=== PATIENT | female | born 1945 | race Caucasian/White ===

== ENCOUNTER 2016-11-05 11:34 | Inpatient (IN) ==
--- NOTE | 2016-11-05 12:06 | Emergency Department Note ---
Disposition Clinical Impression: Periorbital cellulitis of left eye Disposition: Admitted As Inpatient Condition: Good Eye Problem HPI - General Chief complaint: ED Eye Problems Stated complaint: orbital cellulitis Time Seen by Provider: 11/05/16 11:40 Source: patient, family Limitations: no limitations Nursing Notes Reviewed: Yes Vital Signs Reviewed: Yes - History of Present Illness HPI Narrative: 71-year-old female with a history of hypertension and previous right sided orbital cellulitis as well as narrow angle glaucoma presents to the emergency department with a chief complaint of left eye pain and swelling. On Tuesday her left eye started feeling tender above her upper lid. She had previous spontaneous right sided orbital cellulitis and stated this felt very similar so went to see her eye doctor. Her eye doctor started her on steroid drops and she followed up Tuesday. On Tuesday the redness had worsened and apparently the pressure in her eye was elevated so he performed a decompression laser surgery and started her on Keflex. She took her Keflex Tuesday night and one dose today but the redness and swelling has worsened. She reports some pain in that left eye. She denies any nausea or vomiting. Denies any ear pain or jaw pain. Denies any difficulty swallowing. Denies any fevers or chills. - Related Data Home Medications Medication Instructions Recorded Confirmed Losartan [Cozaar] 25 mg PO DAILY 01/24/16 11/05/16 Potassium Chloride [Klor-Con] 20 meq PO DAILY 01/24/16 11/05/16 Rosuvastatin Calcium [Crestor] 5 mg PO DAILY 01/24/16 11/05/16 Triamterene/HCTZ 37.5/25mg 37.5 mg PO DAILY 01/24/16 11/05/16 [Dyazide] Aspirin Enteric Coated [Aspirin EC] 81 mg PO DAILY 11/05/16 11/05/16 Biotin Forte 1 each PO DAILY 11/05/16 11/05/16 cephALEXin [Keflex] 750 mg PO BID 11/05/16 11/05/16 Allergies Allergy/AdvReac Type Severity Reaction Status Date / Time No Known Allergies Allergy Verified 01/25/16 10:41 All systems ED: reviewed and negative except as stated. Constitutional: Denies: fever, chills Eyes: Reports: vision change (Blurred vision in that eye) Respiratory: Denies: dyspnea Gastrointestinal: Denies: nausea, vomiting Musculoskeletal: Denies: neck pain Past Medical History - Past Medical History Attestation: Yes The following information was validated with the patient. Medical history: Reports: hyperlipidemia, hypertension Surgical history: Reports: no surgical history Psychiatric history: Reports: no psych history - Social History Smoking Status: Never smoker Alcohol use: Reports: none Drug use: Reports: none Physical Exam Gen.: Resting comfortably in bed in no distress Cardiovascular: Regular rate and rhythm Head: Atraumatic without signs of injury Face: There is circumferential erythema and swelling around the left eye involving the lids and the soft tissue. She cannot open her eye independently but we can open it manually. The eye conjunctiva itself is erythematous and watery. Her pupil is reactive both direct and consensually. EOMI. However, when she looks laterally with the left eye it does cause some discomfort. - General Limitations: no limitations General appearance: alert, in no apparent distress Course Course Narrative: CT scan shows findings consistent with left periorbital cellulitis without significant post-septal extension. Patient was already on antibiotics and she had worsening symptoms which I think qualifies as failed outpatient treatment. She was given IV antibiotics in the emergency Department but I feel that admission for observation for IV antibiotics and further monitoring is imperative. Vital Signs Temperature 98.6 F 11/05/16 11:35 Pulse Rate 74 11/05/16 11:35 Respiratory Rate 18 11/05/16 11:35 Blood Pressure 173/83 11/05/16 11:35 O2 Sat by Pulse Oximetry 98 11/05/16 11:35 Temperature 98.6 F 11/05/16 11:35 Pulse Rate 59 11/05/16 14:09 Respiratory Rate 16 11/05/16 14:55 Blood Pressure 148/72 11/05/16 14:55 O2 Sat by Pulse Oximetry 95 11/05/16 13:22 Oxygen Delivery Oxygen Delivery Room Air Eye - Lab Data Result diagrams: 11/05/16 12:09 11/05/16 12:09 Lab Results 11/05/16 11/05/16 Range/Units 12:09 12:09 WBC 8.0 (4.3-11.1) K/mcL RBC 4.54 (3.82-4.97) M/mcL Hgb 13.1 (11.5-15.4) g/dL Hct 39.2 (35.3-44.9) % MCV 86.3 (83.0-100.0) fL MCH 28.9 (28.0-33.3) pg MCHC 33.4 (31.6-35.5) g/dL RDW 13.0 (11.5-14.5) % Plt Count 205 (140-400) K/mcL MPV 10.5 (9.4-12.4) fL Immature Gran % 0.3 (0-4) % Seg Neutrophils % 62.9 % Lymphocytes % 22.8 % Monocytes % 12.8 % Eosinophils % 0.8 % Basophils % 0.4 % Neutrophils # 5.1 (1.6-8.9) K/mcL Lymphocytes # 1.8 (0.6-4.6) K/mcL Monocytes # 1.0 (0.0-1.3) K/mcL Eosinophils # 0.1 (0.0-0.6) K/mcL Basophils # 0.0 (0.0-0.2) K/mcL Sodium 141 (136-145) mEq/L Potassium 3.3 L (3.5-4.5) mEq/L Chloride 105 (98-109) mEq/L Carbon Dioxide 26 (19-29) mEq/L BUN 21 H (7-20) mg/dL Creatinine 0.87 (0.57-1.11) mg/dL Est GFR ( Amer) > 60 (> 60) Est GFR (Non-Af Amer) > 60 (> 60) BUN/Creatinine Ratio 24 (6-26) Glucose 86 (70-99) mg/dL Calculated Osmolality 294 (280-300) Calcium 9.9 (8.6-10.8) mg/dL Attestation Statement - Attestation Attestation: I examined this patient and my medical decision-making was reviewed with the DYE MIXER/PA/Advanced Practice Nurse/Resident Physician. I agree with the documented findings, disposition and treatment plan as described except to the extent set forth below. 71-year-old female presents ED because of pain around her left eye. She began several days ago with erythema around the left eye was started on a course of Keflex. She was seen by optometry who noted her intraocular pressure was elevated to 30. He performed a laser procedure to reduce the pressure. She was seen in follow-up today and the pressure was improved but she had worsening of the erythema despite 4 days of Keflex. She was sent to the ED for IV antibiotics. Denies any headache. No fevers or chills. Vision in the left eye is still a little bit blurry. No known trauma. No other complaints. Pleasant female in no apparent distress. Pupils equal react to light. Anterior chambers are clear. No direct or consensual photophobia. She does have pain with extraocular movements. No proptosis appreciated. Dense erythema surrounding the eye which is tender to palpation. CT of the orbit was negative for orbital abscess. Mild inflammation stranding was noted. She will be admitted for IV antibiotics and further ophthalmology evaluation
[2016-11-05 12:16] LABS: Basophils % 0.4 %; Eosinophils # 0.1 K/mcL (0.0-0.6); Eosinophils % 0.8 %; Hematocrit 39.2 % (35.3-44.9); Hemoglobin 13.1 g/dL (11.5-15.4); Immature Granulocytes % 0.3 % (0-4); Lymphocytes # 1.8 K/mcL (0.6-4.6); Lymphocytes % 22.8 %; Mean Corpuscular HGB Conc 33.4 g/dL (31.6-35.5); Mean Corpuscular Hemoglobin 28.9 pg (28.0-33.3); Mean Corpuscular Volume 86.3 fL (83.0-100.0); Mean Platelet Volume 10.5 fL (9.4-12.4); Monocytes % 12.8 %; Neutrophils # 5.1 K/mcL (1.6-8.9); Platelet Count 205 K/mcL (140-400); Red Blood Count 4.54 M/mcL (3.82-4.97); Segmented Neutrophils % 62.9 %
[2016-11-05 12:29] LABS: BUN/Creatinine Ratio 24 (6-26); Blood Urea Nitrogen 21 mg/dL (7-20); Calcium 9.9 mg/dL (8.6-10.8); Carbon Dioxide 26 mEq/L (19-29); Chloride 105 mEq/L (98-109); Glucose 86 mg/dL (70-99); Osmolality,Calculated 294 (280-300); Potassium 3.3 mEq/L (3.5-4.5); Sodium 141 mEq/L (136-145); eGFR For African Americans > 60 (> 60); eGFR For Non-African Americans > 60 (> 60)
--- NOTE | 2016-11-05 15:52 | Internal Med History&Physical ---
Date of Encounter: 11/05/16 Time of Encounter: 15:30 Assessment and Plan (1) Periorbital cellulitis of left eye Current visit: Yes Status: Acute Acute left periorbital cellulitis. Failed outpatient treatment with Keflex. Will treat with intravenous antibiotics. (2) Essential hypertension Current visit: Yes Status: Chronic Blood pressure is currently elevated likely related to pain. We will monitor blood pressure and resume home medications. (3) Hypokalemia Current visit: No Status: Chronic Potassium 3.3. We will replace orally. Internal Medicine - H&P: HPI Chief complaint: Left eye redness and swelling Admitted From: Emergency Dept Plans for Post Hospital Care: Home History of present illness: Ms. Garcia is a 71 year old female patient with history of hyperlipidemia, hypertension, previous preseptal cellulitis of the right eye who presented to the ER with complaints of redness and swelling involving the left eye. Her symptoms began on Tuesday. 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 They initially prescribed steroid eye drops and asked her to return the next day. By then she developed some more swelling and redness of the eye and was evaluated and told that there was increased pressure in the eye and so she underwent laser surgery then. She was also prescribed Keflex at that time which she began to take next day. She was evaluated in the clinic again today and was noted to have much worse redness and swelling involving the left eye and so was asked to come to the ER for further evaluation. She denies any vision problems. No fever chills or night sweats. She had a similar presentation last year involving the right eye when she was diagnosed with preseptal cellulitis and was treated with intravenous antibiotics. Past Med Surg Social Fam HX - Past Medical History Attestation: Yes The following information was validated with the patient. Source: patient Medical history: hyperlipidemia, hypertension Psychiatric history: no psych history - Past Surgical History Surgical History: no surgical history - Social History Smoking Status: Never smoker Alcohol use: none Drug use: none - Family History Father Family Member Ethnicity: Non- Internal Medicine - H&P: Meds Losartan [Cozaar] 25 mg PO DAILY 01/24/16 [History] Potassium Chloride [Klor-Con] 20 meq PO DAILY 01/24/16 [History] Rosuvastatin Calcium [Crestor] 5 mg PO DAILY 01/24/16 [History] Triamterene/HCTZ 37.5/25mg [Dyazide] 37.5 mg PO DAILY 01/24/16 [History] Aspirin Enteric Coated [Aspirin EC] 81 mg PO DAILY 11/05/16 [History] Biotin Forte 1 each PO DAILY 11/05/16 [History] cephALEXin [Keflex] 750 mg PO BID 11/05/16 [History] Allergies No Known Allergies Allergy (Verified 01/25/16 10:41) All Systems PM: A 10-system review of systems was performed and is negative for pertinent findings except as documented above in the HPI. - Constitutional Constitutional: no chills, no fever(s), no night sweats - EENT Eyes: irritation, itchy eyes, no change in vision, no discharge, no pain, no photophobia Ears: no ear discharge, no ear pain, no tinnitus Nose, mouth and throat: no dysphagia, no nasal discharge, no neck pain, no sore throat - Cardiovascular Cardiovascular ROS IM: no chest pain, no diaphoresis, no dyspnea, no lightheadedness, no palpitations, no syncope - Respiratory Respiratory: no cough, no dyspnea, no wheezing, no excessive phlegm production - Gastrointestinal Gastrointestinal: no abdominal pain, no diarrhea, no hematemesis, no hematochezia, no melena, no nausea, no vomiting - Genitourinary Genitourinary: no change in urinary stream, no dysuria, no flank pain, no hematuria - Musculoskeletal Musculoskeletal ROS IM: no numbness, no tingling - Integumentary Integumentary IM: no rash, no unusual bruising - Neurological Neurological ROS: no confusion, no convulsions, no focal weakness, no numbness, no tingling, no tremor(s) - Hematologic/Lymphatic Hematologic/Lymphatic: no easy bruising - Constitutional Vitals: Temp Pulse Resp BP Pulse Ox 98.6 F 59 16 148/72 95 11/05/16 11:35 11/05/16 14:09 11/05/16 14:55 11/05/16 14:55 11/05/16 13:22 General appearance: Present: cooperative, mild distress, A&O X 3, pleasant, answers questions appropriately - Eye Eye exam: Present: conjunctival injection (Left eye), periorbital swelling ( Left eye), periorbital tenderness (Left eye), PERRL, conjuntiva pink, sclera anicteric - Neck Neck exam general surgery: Present: supple, trachea midline. Absent: lymphadenopathy - Respiratory Respiratory exam: Present: CTAB. Absent: accessory muscle use, rales, rhonchi, wheezes - Cardiovascular Cardiovascular exam: Present: RRR, +S1, +S2. Absent: diastolic murmur, gallop, rubs, systolic murmur - GI/Abdominal GI/Abdominal exam: Present: normal bowel sounds, soft, no peritoneal signs. Absent: distended, tenderness - Extremities Exam Extremities exam: Present: warm, radial pulses palpable and symetrical. Absent : calf tenderness, cyanotic, pedal edema - Neurological Exam Neurological exam: Present: alert, CN II-XII intact, oriented X3, no focal deficits. Absent: pronater drift, facial droop, speech deficit - Skin Skin exam: Present: dry, intact Internal Med - H&P Results - Labs CBC & Chem 7: 11/05/16 12:09 11/05/16 12:09 - Impressions Impressions Orbit CT 11/05/16 12:02 IMPRESSION: Findings are consistent with left periorbital cellulitis, without significant postseptal/interconal extension. D/ / 11/05/2016 13:33:25 Moses Cardoza MD / Ольга Chandra Interpreting Provider: Moses Cardoza MD - Attending Attestation This document has been at least partially created by [employer] voice recognition technology by Dr. Gaston. Errors in grammar, wording or other phrases may exist. If errors are found after the documentation is signed, they will be addressed individually in the addendum section of this document when appropriate.
[2016-11-05] MEDS ORDERED: Naloxone 0.4 MG/ML INJ IVP PRN (15:56)
[2016-11-05] MEDS: Ampicillin/Sulbactam 3,000 MG in 0.9 % Sodium Chloride Mini Bag 100 ML IVPB SCH (16:25)
[2016-11-05] MEDS: Acetaminophen 325 MG TABLET PO PRN (16:25)
[2016-11-05] MEDS: *HR* Heparin 5,000 UNIT/ML VIAL SQ SCH ×2 (16:26→16:31)
[2016-11-05] MEDS: 0.9 % Sodium Chloride w KCl 20 MEQ/1,000 ML MLS IVC SCH (16:26)
[2016-11-05] MEDS ORDERED: *HR* OxyCODONE Immed Rel 5 MG TABLET PO PRN (19:41)
[2016-11-05] MEDS: Ibuprofen 400 MG TABLET PO PRN (21:18)
[2016-11-06] MEDS: Ampicillin/Sulbactam 3,000 MG in 0.9 % Sodium Chloride Mini Bag 100 ML IVPB SCH ×5 (00:41→23:54)
[2016-11-06 05:25] LABS: Basophils % 0.5 %; Eosinophils # 0.1 K/mcL (0.0-0.6); Eosinophils % 2.2 %; Hemoglobin 11.7 g/dL (11.5-15.4); Immature Granulocytes % 0.3 % (0-4); Mean Corpuscular HGB Conc 31.6 g/dL (31.6-35.5); Mean Corpuscular Hemoglobin 27.7 pg (28.0-33.3); Mean Corpuscular Volume 87.7 fL (83.0-100.0); Mean Platelet Volume 11.1 fL (9.4-12.4); Monocytes # 0.9 K/mcL (0.0-1.3); Monocytes % 13.1 %; Neutrophils # 3.5 K/mcL (1.6-8.9); Platelet Count 200 K/mcL (140-400); Red Blood Count 4.22 M/mcL (3.82-4.97); Segmented Neutrophils % 53.9 %
[2016-11-06] MEDS: *HR* Heparin 5,000 UNIT/ML VIAL SQ SCH ×2 (06:22→17:04)
[2016-11-06] MEDS: 0.9 % Sodium Chloride w KCl 20 MEQ/1,000 ML MLS IVC SCH (06:23)
[2016-11-06] MEDS: Aspirin Enteric Coated 81 MG Tablet PO SCH (08:27)
[2016-11-06] MEDS: Acetaminophen 325 MG TABLET PO PRN (08:36)
[2016-11-06] MEDS: Ibuprofen 400 MG TABLET PO PRN ×2 (10:05→21:42)
--- NOTE | 2016-11-06 15:55 | Internal Med Progress Note ---
Date of Encounter: 11/06/16 Time of Encounter: 11:45 - Assessment and plan (1) Periorbital cellulitis Current Visit: No Status: Acute Assessment and plan: Acute left periorbital cellulitis. History of same to right side one year ago. Patient failed outpatient treatment with Keflex. She was seen twice at [facility] office. Was sent here for treatment and evaluation. She received Rocephin 2 g IV 1 in the emergency department. She is being treated with Unasyn 3 g every 6 hours IV here. Patient showed me pictures from onset and it has greatly improved. Periorbital area still remains red and warm and tender, however patient can actually open eye today and can see out of her eye. Will keep patient another day discharge tomorrow if improving. Continue Unasyn 3 g every 6 hours IV Qualifiers: Laterality: left Qualified Code(s): L03.213 - Periorbital cellulitis (2) HTN (hypertension) Current Visit: No Status: Chronic Assessment and plan: Continue home medications. Qualifiers: Hypertension type: essential hypertension Qualified Code(s): I10 - Essential (primary) hypertension (3) Hypokalemia Current Visit: No Status: Chronic Assessment and plan: Still remains hypokalemic. She is receiving 20 mEq potassium in the liter. Potassium still remains 3.3 Will redraw in the morning along with magnesium. - Time Spent With Patient less than 15 minutes - Subjective Interval history: Patient has pictures on her cell phone from 2 days ago. Left eye has greatly improved. Still remain slightly reddened, swollen, and painful. Today patient can open eyes for the first time in several days and can see out of left eye. She says this is a great improvement. She denies any other problems or concerns. We will continue to monitor overnight and discharged tomorrow if still improving. - Constitutional Vitals: Temp Pulse Resp BP Pulse Ox 98.1 F 71 14 133/75 94 11/06/16 10:37 11/06/16 10:37 11/06/16 10:37 11/06/16 10:37 11/06/16 10:37 General appearance: Present: cooperative, mild distress, A&O X 3, pleasant, answers questions appropriately - Head Head exam: Present: normal inspection - Eye Eye exam: Present: periorbital swelling, periorbital tenderness, conjuntiva pink - ENT ENT exam: Present: mucous membranes moist, normal exam, normal external ear exam - Neck Neck exam general surgery: Present: normal inspection. Absent: lymphadenopathy , tenderness - Respiratory Respiratory exam: Present: CTAB. Absent: rales, respiratory distress, rhonchi, stridor, wheezes - Cardiovascular Cardiovascular exam: Present: RRR, +S1, +S2. Absent: diastolic murmur, systolic murmur - GI/Abdominal GI/Abdominal exam: Present: normal bowel sounds, soft. Absent: hepatomegaly, tenderness - Neurological Exam Neurological exam: Present: alert, normal gait, oriented X3, no focal deficits, strengths equal and symetr throughout. Absent: pronater drift, facial droop, speech deficit Internal Medicine: Result - Labs CBC & Chem 7: 11/06/16 05:06 11/06/16 09:48 Labs: Short CBC 11/06/16 Range/Units 05:06 WBC 6.5 (4.3-11.1) K/mcL Hgb 11.7 (11.5-15.4) g/dL Hct 37.0 (35.3-44.9) % Plt Count 200 (140-400) K/mcL Neutrophils # 3.5 (1.6-8.9) K/mcL BMP 11/06/16 09:48 Potassium 3.3 L Consult Discharge Plan - Plan Referrals: Sapna Ramos CNP [Primary Care Provider] -
[2016-11-07] MEDS: 0.9 % Sodium Chloride w KCl 20 MEQ/1,000 ML MLS IVC SCH (01:56)
[2016-11-07 04:51] LABS: Basophils % 0.6 %; Eosinophils # 0.4 K/mcL (0.0-0.6); Eosinophils % 5.7 %; Hematocrit 36.6 % (35.3-44.9); Hemoglobin 11.6 g/dL (11.5-15.4); Immature Granulocytes % 0.3 % (0-4); Lymphocytes # 1.9 K/mcL (0.6-4.6); Lymphocytes % 31.4 %; Mean Corpuscular HGB Conc 31.7 g/dL (31.6-35.5); Mean Corpuscular Hemoglobin 28.1 pg (28.0-33.3); Mean Corpuscular Volume 88.6 fL (83.0-100.0); Mean Platelet Volume 11.6 fL (9.4-12.4); Monocytes # 0.7 K/mcL (0.0-1.3); Neutrophils # 3.1 K/mcL (1.6-8.9); Platelet Count 201 K/mcL (140-400); Red Blood Count 4.13 M/mcL (3.82-4.97)
[2016-11-07 04:58] LABS: Magnesium 1.4 mg/dL (1.6-2.6); Potassium 4.1 mEq/L (3.5-4.5)
[2016-11-07] MEDS: Ampicillin/Sulbactam 3,000 MG in 0.9 % Sodium Chloride Mini Bag 100 ML IVPB SCH ×2 (06:41→11:57)
[2016-11-07] MEDS: *HR* Heparin 5,000 UNIT/ML VIAL SQ SCH (06:41)
[2016-11-07] MEDS: Ibuprofen 400 MG TABLET PO PRN (06:47)
[2016-11-07] MEDS: Aspirin Enteric Coated 81 MG Tablet PO SCH (08:21)
[2016-11-07] MEDS ORDERED: Magnesium Oxide 400 MG TABLET PO SCH (09:00)
[2016-11-07 11:08] VITALS: BP 130/82
--- NOTE | 2016-11-07 12:27 | Discharge Summary ---
Date of Encounter: 11/07/16 Time of Encounter: 09:30 - Discharge Diagnosis (1) Periorbital cellulitis Priority: Primary Status: Acute Comments: Pt is greatly improved today. L eye is actually opened and pt states that she can see out of it. L eye is bloodshot. Pt denies pain, drainage, or vision changes. States that she will follow up with Opthomology outpatient. Pt will be sent home on . Qualifiers: Laterality: left Qualified Code(s): L03.213 - Periorbital cellulitis (2) HTN (hypertension) Priority: Secondary Status: Chronic Comments: Chronic. Well-controlled. Continue home medications. Qualifiers: Hypertension type: essential hypertension Qualified Code(s): I10 - Essential (primary) hypertension (3) Hypokalemia Priority: Secondary Status: Resolved Comments: Resolved. K+ 4.1 today.. - Discharge Medications Prescriptions: Amoxicillin/Clavulanate [Augmentin] 875 mg PO BIDWM #20 tablet Home Medications: Losartan [Cozaar] 25 mg PO DAILY 01/24/16 [History] Potassium Chloride [Klor-Con] 20 meq PO DAILY 01/24/16 [History] Rosuvastatin Calcium [Crestor] 5 mg PO DAILY 01/24/16 [History] Triamterene/HCTZ 37.5/25mg [Dyazide] 37.5 mg PO DAILY 01/24/16 [History] Aspirin Enteric Coated [Aspirin EC] 81 mg PO DAILY 11/05/16 [History] Biotin Forte 1 each PO DAILY 11/05/16 [History] Amoxicillin/Clavulanate [Augmentin] 875 mg PO BIDWM #20 tablet 11/07/16 [Rx] Allergies/Adverse Reactions: Allergies No Known Allergies Allergy (Verified 01/25/16 10:41) Date of admission: 11/06/16 18:42 Primary care physician: Sapna Ramos CNP Discharging clinician: Kyra Villegas Anticipated date of discharge: 11/07/16 - Patient Status Disposition: Home, Self-Care Condition: Good Functional capacity at discharge: independent ambulation Overall status at discharge: patient is progressing back to baseline - Discharge Instructions Follow Up With: Sapna Ramos CNP [Primary Care Provider] - Additional Instructions: Please take your antibiotics as written and until they are gone. Resume your other home medications. Please follow up with your PCP and Opthomologist ASHLEY. Return to the ED for any new problems or concerns or if your condition changes. - Diet and Activity Activity: increase activity as tolerated Diet: advance to your usual diet Hospital course: Ms. Garcia is a 71 year old female with prior history of periorbital cellulitis to the right eye approximately one year ago. 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 She was started on Keflex and failed outpatient. She was admitted for IV therapy. She has been being treated with Unasyn. Her vision has returned and her eye is open to where she can see now. Yesterday her eye was still closed and she had to open it with her fingers. Sclera is red, pt denies vision changes, discharge. She is being discharged on Augmentin 875mg po bid x 10 days. I have discussed the importance of following up with her PCP and opthomology and she states that she will follow up this week. Pt is appropriate and stable for discharge. - Time Spent with Patient Total time spent providing and/or coordinating discharge services: - Constitutional Vitals: Temp Pulse Resp BP Pulse Ox 97.6 F 67 16 130/82 98 11/07/16 11:07 11/07/16 11:07 11/07/16 11:07 11/07/16 11:07 11/07/16 11:07 General appearance: Present: cooperative, mild distress, A&O X 3, pleasant, answers questions appropriately - Head Head exam: Present: normal inspection - Eye Eye exam: Present: conjunctival injection, normal appearance, periorbital swelling, conjuntiva pink - ENT ENT exam: Present: mucous membranes moist, normal exam, normal external ear exam - Neck Neck exam general surgery: Present: normal inspection. Absent: lymphadenopathy , tenderness - Respiratory Respiratory exam: Present: decreased breath sounds. Absent: rales, respiratory distress, rhonchi, stridor, wheezes - Cardiovascular Cardiovascular exam: Present: RRR, +S1, +S2. Absent: diastolic murmur, systolic murmur - GI/Abdominal GI/Abdominal exam: Present: normal bowel sounds, soft. Absent: distended, hepatomegaly, tenderness - Extremities Exam Extremities exam: Present: normal inspection, warm, radial pulses palpable and symetrical. Absent: pedal edema, tenderness - Neurological Exam Neurological exam: Present: alert, oriented X3, no focal deficits, strengths equal and symetr throughout. Absent: facial droop, speech deficit
== END 2016-11-07 13:39 | disposition home or self-care (01) | DRG 603 ==
LOC: EMEROO 11:34 → 3NENU 11:34 → SUATTDRO 14:26 → 3NENU 15:15
PROVIDERS: ADMIT Internal Medicine; ATTEND Internal Medicine

== ENCOUNTER 2018-02-03 18:33 | Inpatient (IN) ==
[2018-02-03] MEDS ORDERED: MORPHINE SUL Oral CONC 10 MG/0.5 ML ORAL.SYG SL PRN (20:43)
[2018-02-04] MEDS: 0.9 % Sodium Chloride 1,000 ML IVC SCH ×2 (00:09→19:35)
[2018-02-04] MEDS: Piperacillin/Tazobactam 3.375 GM in 0.9 % Sodium Chloride Mini Bag 100 ML IVPB SCH ×4 (00:09→23:57)
[2018-02-04] MEDS: *HR* Heparin 5,000 UNIT/ML VIAL SQ SCH ×2 (05:39→17:58)
[2018-02-04 06:55] LABS: Basophils # 0.1 K/mcL (0.0-0.2); Eosinophils # 0.2 K/mcL (0.0-0.6); Eosinophils % 3.2 %; Hematocrit 34.1 % (35.3-44.9); Hemoglobin 11.4 g/dL (11.5-15.4); Immature Granulocytes % 0.3 % (0-4); Lymphocytes # 1.8 K/mcL (0.6-4.6); Lymphocytes % 29.1 %; Mean Corpuscular HGB Conc 33.4 g/dL (31.6-35.5); Mean Corpuscular Volume 86.8 fL (83.0-100.0); Mean Platelet Volume 10.2 fL (9.4-12.4); Monocytes # 0.9 K/mcL (0.0-1.3); Monocytes % 14.9 %; Neutrophils # 3.2 K/mcL (1.6-8.9); Platelet Count 224 K/mcL (140-400); Red Blood Count 3.93 M/mcL (3.82-4.97); Red Cell Distribution Width 13.7 % (11.5-14.5); Segmented Neutrophils % 51.5 %
[2018-02-04 07:22] LABS: BUN/Creatinine Ratio 15 (6-26); Blood Urea Nitrogen 11 mg/dL (8-23); Calcium 9.3 mg/dL (8.6-10.3); Carbon Dioxide 28 mEq/L (23-29); Chloride 103 mEq/L (98-107); Glucose 95 mg/dL (70-105); Osmolality,Calculated 287 (280-300); Potassium 3.1 mEq/L (3.5-5.1); Sodium 139 mEq/L (136-145); eGFR For Non-African Americans > 60 (> 60)
--- NOTE | 2018-02-04 12:24 | General Surg History&Physical ---
<Liz Milian - Last Filed: 02/04/18 14:24> Date of Encounter: 02/04/18 Assessment and Plan (1) Diverticulitis of large intestine with abscess Current Visit: Yes Status: Acute The assessment and plan as outlined above was discussed with the patient and/or family members who expressed understanding and agreement. All questions were answered. Dicussed with patient that given her worsening CT findings I think it is prudent to admit her for a few days of IV antibiotics zosyn started ok fulls cbc wnl tender LLQ, no rebound or guarding ordered stool gi panel serial abdomnial exams Qualifiers: Diverticulitis bleeding: without bleeding Qualified Code(s): K57.20 - Diverticulitis of large intestine with perforation and abscess without bleeding (2) Essential hypertension Current Visit: No Status: Chronic The assessment and plan as outlined above was discussed with the patient and/or family members who expressed understanding and agreement. All questions were answered. continue home medication History of Present Illness Chief complaint: chronic abdominal pain HPI: Ms. Garcia is a 72 year old female who has been seeing Dr Campbell as outpatient for chronic LLQ abdominal pain and diarrhea/loose stools. Patient had CT scan which showed sigmoid colon inflammation consistent with diverticulitis and she was treated with po antibiotics , cipro and flagyl for 10 days. She recently underwent colonoscopy which showed thick walled sigmoid and biopsies were consistent with hyperplastic polyp. She underwent repeat CT scan this past which shows continued sigmoid colon inflammation, worse since previous CT, and an intramural abscess. She was restarted on po antibiotics but only took 1 days worth. [facility] called with results and patient was instructed to present to hospital for admission and IV antibiotics. She is still having intermittent LLQ pain which is crampy, sometimes sharp. It can be worse before a bm and sometimes is relieved after a bowel movement. She often feels like she isnt fully evacuated after having a bm. Denies melena or hematochezia. She often has diarrhea and soft stools, then will pass small firm stool. She has lost 33 lbs since may. Past Med Surg Social Fam HX - Past Medical History Source: patient Medical history: hyperlipidemia, hypertension Psychiatric history: depression - Past Surgical History Surgical History: other Medications and Allergies Rosuvastatin Calcium [Crestor] 5 mg PO DAILY 01/24/16 [History] Triamterene/HCTZ 37.5/25mg [Dyazide] 37.5 mg PO DAILY 01/24/16 [History] Biotin Forte 1 each PO DAILY 11/05/16 [History] Ciprofloxacin [Cipro] 500 mg PO BID 02/04/18 [History] Potassium Chloride [Klor-Con 10] 30 meq PO DAILY 02/04/18 [History] Sulfasalazine [Azulfidine] 500 mg PO QID 02/04/18 [History] metroNIDAZOLE [Metronidazole] 500 mg PO BID 02/04/18 [History] 3 Allergy/AdvReac Type Severity Reaction Status Date / Time No Known Allergies Allergy Verified 01/25/16 10:41 Review of Systems All systems PM: reviewed and no additional remarkable complaints except as stated All systems PM: The remainder of the systems were reviewed and are negative General Surgery Exam Initial Vital Signs Temp Pulse Resp BP Pulse Ox 98.6 F 90 15 129/78 97 02/03/18 20:10 02/03/18 20:10 02/03/18 20:10 02/03/18 20:10 02/03/18 20:10 - General physical appearance well developed, well nourished, no distress - Eyes PERRL, normal ocular movement - ENT normal mucosa, normocephalic - Neck trachea midline - Respiratory normal expansion, clear to auscultation - Cardiovascular Cardiovascular exam: Present: RRR, no murmurs/rubs/gallops - Abdomen Abdomen general surgery: Present: bowel sounds present, soft, tender. Absent: distended, guarding, rebound Abdominal Tenderness: Present: LLQ - Integumentary Integumentary general surgery: Present: warm and dry, no abnormal pigmentation - Neurologic Present: CN 2-12 grossly intact - Psychiatric Psychiatric general surgery: Present: A&Ox3 Results - Labs 02/04/18 06:20 02/04/18 06:20 Abnormal lab results Hgb 11.4 g/dL (11.5-15.4) L 02/04/18 06:20 Hct 34.1 % (35.3-44.9) L 02/04/18 06:20 Potassium 3.1 mEq/L (3.5-5.1) L 02/04/18 06:20 Diabetes panel 02/04/18 Range/Units 06:20 Sodium 139 (136-145) mEq/L Potassium 3.1 L (3.5-5.1) mEq/L Chloride 103 (98-107) mEq/L Carbon Dioxide 28 (23-29) mEq/L BUN 11 (8-23) mg/dL Creatinine 0.72 (0.60-1.20) mg/dL Glucose 95 (70-105) mg/dL Calcium 9.3 (8.6-10.3) mg/dL Calcium panel 02/04/18 Range/Units 06:20 Calcium 9.3 (8.6-10.3) mg/dL Pituitary panel 02/04/18 Range/Units 06:20 Sodium 139 (136-145) mEq/L Potassium 3.1 L (3.5-5.1) mEq/L Chloride 103 (98-107) mEq/L Carbon Dioxide 28 (23-29) mEq/L BUN 11 (8-23) mg/dL Creatinine 0.72 (0.60-1.20) mg/dL Glucose 95 (70-105) mg/dL Calcium 9.3 (8.6-10.3) mg/dL Adrenal panel 02/04/18 Range/Units 06:20 Sodium 139 (136-145) mEq/L Potassium 3.1 L (3.5-5.1) mEq/L Chloride 103 (98-107) mEq/L Carbon Dioxide 28 (23-29) mEq/L BUN 11 (8-23) mg/dL Creatinine 0.72 (0.60-1.20) mg/dL Glucose 95 (70-105) mg/dL Calcium 9.3 (8.6-10.3) mg/dL All other labs normal. - Imaging CT scan - abdomen: report reviewed, image reviewed CT scan - pelvis: report reviewed, image reviewed - Attending Attestation I examined this patient and my medical decision-making was reviewed with the Resident Physician. I agree with the documented findings, disposition and treatment plan as described except to the extent set forth below. <Radha Colby - Last Filed: 02/04/18 14:35> Date of Encounter: 02/04/18 Time of Encounter: 12:19 Assessment and Plan (1) Hypercholesterolemia Current Visit: Yes Status: Acute Continue Lipitor The assessment and plan as outlined above was discussed with the patient and/or family members who expressed understanding and agreement. All questions were answered. (2) Intestinal abscess Current Visit: Yes Status: Acute Full liquid diet Serial abdominal exams Continue Zosyn Continue supportive care and pain management Prilosec 20mg Daily. The assessment and plan as outlined above was discussed with the patient and/or family members who expressed understanding and agreement. All questions were answered. (3) HTN (hypertension) Current Visit: No Status: Chronic Continue Dyazide The assessment and plan as outlined above was discussed with the patient and/or family members who expressed understanding and agreement. All questions were answered. Qualifiers: Hypertension type: essential hypertension Qualified Code(s): I10 - Essential (primary) hypertension (4) DVT prophylaxis Current Visit: Yes Status: Acute Heparin 5000 unit SQ Q12 EPCD History of Present Illness HPI: Ms. Garcia is a 72 year old female presents with a month long history of diarrhea, small stools, and lower abdominal cramping/dull pain. She had been seen on (_) and had a CT scan that showed some sigmoid colon wall thickening, was put on a 10 day dose of oral antibiotics. WAs seen again on 02/02/[address] Campbell who ordered a second CT scan and he began another round of oral antibiotics at that time. The patient still has been having the dull/achey cramping sensation which is occasionally relieved after going to the restroom. She has a history of HTN and high cholesterol. Abdominal surgeries include a tubal ligation. Past Med Surg Social Fam HX - Past Medical History Medical history: hyperlipidemia, hypertension Psychiatric history: depression - Past Surgical History Surgical History: no surgical history Additional surgical history: Colonscopy December 2017 and heart cath about 2007. - Social History Smoking Status: Never smoker Smokeless Tobacco Status: No Alcohol use: none Drug use: none - Family History Mother Hx Family Neurologic Disorders: Yes (Cerebral hemmorhage) Father Family Member Ethnicity: Non- Hx Family Neurologic Disorders: Yes (Stroke) Review of Systems All systems PM: The remainder of the systems were reviewed and are negative - Constitutional weight loss (33 lbs since June ), no anorexia, no fatigue - Cardiovascular no chest pain, no radiating jaw, neck or arm pain, no rapid heart rate - Respiratory no cough, no dyspnea, no chest congestion - Gastrointestinal change in bowel habits (diarrhea, small stools), cramping, diarrhea General Surgery Exam Initial Vital Signs Temp Pulse Resp BP Pulse Ox 98.6 F 90 15 129/78 97 02/03/18 20:10 02/03/18 20:10 02/03/18 20:10 02/03/18 20:10 02/03/18 20:10 - General physical appearance well developed, well nourished, no distress - Respiratory normal expansion, normal respiratory effort, clear to auscultation - Cardiovascular Cardiovascular exam: Present: RRR, no murmurs/rubs/gallops - Abdomen Abdomen general surgery: Present: bowel sounds present, soft, tender (to palpation ) Abdominal Tenderness: Present: RLQ, LLQ - Integumentary Integumentary general surgery: Present: warm and dry, no abnormal pigmentation - Musculoskeletal Present: normal posture - Psychiatric Psychiatric general surgery: Present: A&Ox3 Results - Labs 02/04/18 06:20 02/04/18 06:20 Abnormal lab results Hgb 11.4 g/dL (11.5-15.4) L 02/04/18 06:20 Hct 34.1 % (35.3-44.9) L 02/04/18 06:20 Potassium 3.1 mEq/L (3.5-5.1) L 02/04/18 06:20 Diabetes panel 02/04/18 Range/Units 06:20 Sodium 139 (136-145) mEq/L Potassium 3.1 L (3.5-5.1) mEq/L Chloride 103 (98-107) mEq/L Carbon Dioxide 28 (23-29) mEq/L BUN 11 (8-23) mg/dL Creatinine 0.72 (0.60-1.20) mg/dL Glucose 95 (70-105) mg/dL Calcium 9.3 (8.6-10.3) mg/dL Calcium panel 02/04/18 Range/Units 06:20 Calcium 9.3 (8.6-10.3) mg/dL Pituitary panel 02/04/18 Range/Units 06:20 Sodium 139 (136-145) mEq/L Potassium 3.1 L (3.5-5.1) mEq/L Chloride 103 (98-107) mEq/L Carbon Dioxide 28 (23-29) mEq/L BUN 11 (8-23) mg/dL Creatinine 0.72 (0.60-1.20) mg/dL Glucose 95 (70-105) mg/dL Calcium 9.3 (8.6-10.3) mg/dL Adrenal panel 02/04/18 Range/Units 06:20 Sodium 139 (136-145) mEq/L Potassium 3.1 L (3.5-5.1) mEq/L Chloride 103 (98-107) mEq/L Carbon Dioxide 28 (23-29) mEq/L BUN 11 (8-23) mg/dL Creatinine 0.72 (0.60-1.20) mg/dL Glucose 95 (70-105) mg/dL Calcium 9.3 (8.6-10.3) mg/dL All other labs normal.
[2018-02-04] MEDS ORDERED: Naloxone 0.4 MG/ML INJ IVP PRN (13:15)
[2018-02-04 14:18] LABS: Adenovirus F 40/41 PCR Not detected (Not detect); Astrovirus PCR Not detected (Not detect); C.difficile Toxin A/B by PCR Not detected (Not detect); Campylobacter by PCR Not detected (Not detect); Cryptosporidium by PCR Not detected (Not detect); Cyclospora cayetanensis PCR Not detected (Not detect); E. coli O157 by PCR Not detected (Not detect); Entamoeba histolytica PCR Not detected (Not detect); Enteroaggregative E.coli(EAEC) Not detected (Not detect); Enteropathogenic E.coli(EPEC) Not detected (Not detect); Enterotoxigenic E.coli (ETEC) Not detected (Not detect); Giardia lamblia PCR Not detected (Not detect); Norovirus GI/GII PCR Not detected (Not detect); Plesiomonas shigelloides PCR Not detected (Not detect); Rotavirus A PCR Not detected (Not detect); Salmonella PCR Not detected (Not detect); Sapovirus PCR Not detected (Not detect); Shig/EnteroinvasiveE coli EIEC Not detected (Not detect); Shigalike tox-prod E coli STEC Not detected (Not detect); Vibrio PCR Not detected (Not detect); Vibrio cholerae PCR Not detected (Not detect); Yersinia enterocolitica PCR Not detected (Not detect)
[2018-02-04] MEDS ORDERED: Piperacillin/Tazobactam 3.375 GM in 0.9 % Sodium Chloride Mini Bag 100 ML IVPB SCH (21:00)
[2018-02-05 04:31] LABS: Basophils # 0.1 K/mcL (0.0-0.2); Basophils % 1.1 %; Eosinophils # 0.2 K/mcL (0.0-0.6); Eosinophils % 3.6 %; Hematocrit 35.5 % (35.3-44.9); Hemoglobin 11.4 g/dL (11.5-15.4); Immature Granulocytes % 0.2 % (0-4); Lymphocytes # 2.2 K/mcL (0.6-4.6); Mean Corpuscular HGB Conc 32.1 g/dL (31.6-35.5); Mean Corpuscular Hemoglobin 28.4 pg (28.0-33.3); Mean Corpuscular Volume 88.5 fL (83.0-100.0); Mean Platelet Volume 10.5 fL (9.4-12.4); Monocytes # 0.7 K/mcL (0.0-1.3); Monocytes % 13.3 %; Neutrophils # 2.4 K/mcL (1.6-8.9); Platelet Count 227 K/mcL (140-400); Red Blood Count 4.01 M/mcL (3.82-4.97); Red Cell Distribution Width 13.8 % (11.5-14.5); Segmented Neutrophils % 42.8 %
[2018-02-05 04:50] LABS: BUN/Creatinine Ratio 14 (6-26); Blood Urea Nitrogen 10 mg/dL (8-23); Calcium 9.1 mg/dL (8.6-10.3); Carbon Dioxide 28 mEq/L (23-29); Chloride 106 mEq/L (98-107); Glucose 92 mg/dL (70-105); Osmolality,Calculated 289 (280-300); Potassium 3.2 mEq/L (3.5-5.1); Sodium 140 mEq/L (136-145); eGFR For Non-African Americans > 60 (> 60)
[2018-02-05] MEDS: *HR* Heparin 5,000 UNIT/ML VIAL SQ SCH ×2 (05:54→16:57)
[2018-02-05] MEDS: Piperacillin/Tazobactam 3.375 GM in 0.9 % Sodium Chloride Mini Bag 100 ML IVPB SCH ×2 (08:02→16:57)
--- NOTE | 2018-02-05 08:19 | General Surgery Progress Note ---
<Radha Colby E - Last Filed: 02/05/18 08:15> Date of Encounter: 02/05/18 Time of Encounter: 08:16 - Assessment and Plan (1) Hypercholesterolemia Current Visit: Yes Status: Acute continue home medications (2) HTN (hypertension) Current Visit: No Status: Chronic continue home medications Qualifiers: Hypertension type: essential hypertension Qualified Code(s): I10 - Essential (primary) hypertension (3) DVT prophylaxis Current Visit: Yes Status: Acute Heparin 5000 unit SQ Q12 Ambulate hallways TID (4) Diverticulitis of large intestine with abscess Current Visit: Yes Status: Acute continue zosyn full liquid diet stool GI panel negative serial abdominal exams Qualifiers: Diverticulitis bleeding: without bleeding Qualified Code(s): K57.20 - Diverticulitis of large intestine with perforation and abscess without bleeding Subjective Patient reports: feels better, other (tolerating fll liquid diet, no cramping today, one bowel movement yesterday none today, passing gas) Objective Vital Signs - Last 8 Hours Temp Pulse Resp BP Pulse Ox 02/05/18 07:23 98.0 F 78 14 135/82 95 02/05/18 03:57 97.9 F 74 15 134/87 93 Intake and Output 02/04/18 02/05/18 02/05/18 23:59 07:59 15:59 Intake Total 1820 / 1820 100 / 100 Balance 1820 / 1820 100 / 100 Intake: IV Fluids 1100 / 1100 100 / 100 0.9 % Sodium Chloride 1,000 ML 1000 / 1000 @ 50 mls/hr IVC .Q20H [facility] Rx#: [id number] Zosyn 3.375 GM In 0.9 % Sodium 100 / 100 100 / 100 Chloride (Mini-Bag +) 100 ML @ 25 mls/hr IVPB Q8HR [facility] Rx#: [id number] Oral 720 / 720 Other: Meal Dinner Percent of Meal Consumed 100% # Voids 1 1 # Bowel Movements 0 0 Weight 74 kg - General physical appearance well developed, well nourished, no distress - Respiratory normal expansion, normal respiratory effort, clear to auscultation - Cardiovascular Cardiovascular exam: Present: RRR, no murmurs/rubs/gallops - Abdomen Abdomen: Present: bowel sounds present, soft, non tender - Integumentary no rash, no growths, no abnormal pigmentation - Musculoskeletal normal posture - Psychiatric oriented to time, oriented to person, oriented to place - Labs 02/05/18 03:47 02/05/18 03:47 Diabetes panel 02/05/18 Range/Units 03:47 Sodium 140 (136-145) mEq/L Potassium 3.2 L (3.5-5.1) mEq/L Chloride 106 (98-107) mEq/L Carbon Dioxide 28 (23-29) mEq/L BUN 10 (8-23) mg/dL Creatinine 0.72 (0.60-1.20) mg/dL Glucose 92 (70-105) mg/dL Calcium 9.1 (8.6-10.3) mg/dL Calcium panel 02/05/18 Range/Units 03:47 Calcium 9.1 (8.6-10.3) mg/dL Pituitary panel 02/05/18 Range/Units 03:47 Sodium 140 (136-145) mEq/L Potassium 3.2 L (3.5-5.1) mEq/L Chloride 106 (98-107) mEq/L Carbon Dioxide 28 (23-29) mEq/L BUN 10 (8-23) mg/dL Creatinine 0.72 (0.60-1.20) mg/dL Glucose 92 (70-105) mg/dL Calcium 9.1 (8.6-10.3) mg/dL Adrenal panel 02/05/18 Range/Units 03:47 Sodium 140 (136-145) mEq/L Potassium 3.2 L (3.5-5.1) mEq/L Chloride 106 (98-107) mEq/L Carbon Dioxide 28 (23-29) mEq/L BUN 10 (8-23) mg/dL Creatinine 0.72 (0.60-1.20) mg/dL Glucose 92 (70-105) mg/dL Calcium 9.1 (8.6-10.3) mg/dL Consult Discharge Plan - Plan Referrals: Sapna Ramos CNP [Primary Care Provider] - <Liz Milian - Last Filed: 02/05/18 18:13> Date of Encounter: 02/05/18 - Assessment and Plan (1) Diverticulitis of large intestine with abscess Current Visit: Yes Status: Acute continue with zosyn continue with fulls consult to GI Qualifiers: Diverticulitis bleeding: without bleeding Qualified Code(s): K57.20 - Diverticulitis of large intestine with perforation and abscess without bleeding (2) Essential hypertension Current Visit: No Status: Chronic continue po medication Subjective Narrative: tolerating diet but has had crampy abdominal pain in LLQ, no nausea, no distention Objective Vital Signs - Last 8 Hours Temp Pulse Resp BP Pulse Ox 02/05/18 17:10 99.1 F 79 16 145/80 97 02/05/18 11:28 98 F 73 16 136/79 95 Intake and Output 02/05/18 02/05/18 02/05/18 07:59 15:59 23:59 Intake Total 100 / 100 1360 / 1360 100 / 100 Balance 100 / 100 1360 / 1360 100 / 100 Intake: IV Fluids 100 / 100 1000 / 1000 100 / 100 0.9 % Sodium Chloride 1,000 ML 1000 / 1000 @ 50 mls/hr IVC .Q20H [facility] Rx#: [id number] Zosyn 3.375 GM In 0.9 % Sodium 100 / 100 100 / 100 Chloride (Mini-Bag +) 100 ML @ 25 mls/hr IVPB Q8HR [facility] Rx#: [id number] Oral 360 / 360 Other: Meal Breakfast Percent of Meal Consumed 100% # Voids 1 2 # Bowel Movements 0 - General physical appearance well developed, well nourished, no distress - Eyes PERRL, normal ocular movement - ENT normal mucosa, normocephalic - Neck Neck exam: trachea midline - Respiratory normal expansion, clear to auscultation - Cardiovascular Cardiovascular exam: Present: RRR - Abdomen Abdomen: Present: bowel sounds present, soft, tender. Absent: guarding, rebound Abdominal Tenderness: LLQ - Integumentary no rash, no growths - Neurologic CN 2-12 grossly intact - Musculoskeletal normal posture - Psychiatric oriented to time, oriented to person, oriented to place, speech is normal, memory intact - Labs 02/05/18 03:47 02/05/18 03:47 Diabetes panel 02/05/18 Range/Units 03:47 Sodium 140 (136-145) mEq/L Potassium 3.2 L (3.5-5.1) mEq/L Chloride 106 (98-107) mEq/L Carbon Dioxide 28 (23-29) mEq/L BUN 10 (8-23) mg/dL Creatinine 0.72 (0.60-1.20) mg/dL Glucose 92 (70-105) mg/dL Calcium 9.1 (8.6-10.3) mg/dL Calcium panel 02/05/18 Range/Units 03:47 Calcium 9.1 (8.6-10.3) mg/dL Pituitary panel 02/05/18 Range/Units 03:47 Sodium 140 (136-145) mEq/L Potassium 3.2 L (3.5-5.1) mEq/L Chloride 106 (98-107) mEq/L Carbon Dioxide 28 (23-29) mEq/L BUN 10 (8-23) mg/dL Creatinine 0.72 (0.60-1.20) mg/dL Glucose 92 (70-105) mg/dL Calcium 9.1 (8.6-10.3) mg/dL Adrenal panel 02/05/18 Range/Units 03:47 Sodium 140 (136-145) mEq/L Potassium 3.2 L (3.5-5.1) mEq/L Chloride 106 (98-107) mEq/L Carbon Dioxide 28 (23-29) mEq/L BUN 10 (8-23) mg/dL Creatinine 0.72 (0.60-1.20) mg/dL Glucose 92 (70-105) mg/dL Calcium 9.1 (8.6-10.3) mg/dL - Attending Attestation I examined this patient and my medical decision-making was reviewed with the Resident Physician. I agree with the documented findings, disposition and treatment plan as described except to the extent set forth below.
[2018-02-05] MEDS: 0.9 % Sodium Chloride 1,000 ML IVC SCH (15:21)
[2018-02-06] MEDS: Piperacillin/Tazobactam 3.375 GM in 0.9 % Sodium Chloride Mini Bag 100 ML IVPB SCH ×2 (00:33→08:49)
[2018-02-06] MEDS: *HR* Heparin 5,000 UNIT/ML VIAL SQ SCH ×2 (05:51→17:50)
[2018-02-06 06:22] LABS: Basophils # 0.1 K/mcL (0.0-0.2); Basophils % 0.9 %; Eosinophils # 0.3 K/mcL (0.0-0.6); Eosinophils % 4.3 %; Hemoglobin 11.7 g/dL (11.5-15.4); Immature Granulocytes % 0.3 % (0-4); Lymphocytes # 2.1 K/mcL (0.6-4.6); Lymphocytes % 36.9 %; Mean Corpuscular HGB Conc 32.5 g/dL (31.6-35.5); Mean Corpuscular Volume 89.1 fL (83.0-100.0); Mean Platelet Volume 10.7 fL (9.4-12.4); Monocytes # 0.8 K/mcL (0.0-1.3); Neutrophils # 2.6 K/mcL (1.6-8.9); Platelet Count 235 K/mcL (140-400); Red Blood Count 4.04 M/mcL (3.82-4.97); Red Cell Distribution Width 13.9 % (11.5-14.5); Segmented Neutrophils % 44.6 %
[2018-02-06 06:45] LABS: BUN/Creatinine Ratio 11 (6-26); Blood Urea Nitrogen 8 mg/dL (8-23); Calcium 9.3 mg/dL (8.6-10.3); Carbon Dioxide 28 mEq/L (23-29); Chloride 106 mEq/L (98-107); Glucose 89 mg/dL (70-105); Osmolality,Calculated 286 (280-300); Potassium 3.4 mEq/L (3.5-5.1); Sodium 139 mEq/L (136-145); eGFR For Non-African Americans > 60 (> 60)
--- NOTE | 2018-02-06 10:13 | General Surgery Progress Note ---
<ValdemarGabriella Roscoe - Last Filed: 02/06/18 10:31> Date of Encounter: 02/06/18 Time of Encounter: 10:13 - Assessment and Plan (1) Abnormal CT of the abdomen Current Visit: Yes Status: Acute Diverticulitis vs IBD vs malignancy CT 01/13/2018 noted approximately 12 cm segment of significant inflammatory changes/thickening of the wall of the sigmoid colon with small amount of surrounding free fluid. Findings compatible with acute diverticulitis however given history of colonic mass cannot exclude malignancy. No free air. No abscess. CT noted again 12 cm segment of thickening of the sigmoid colon as previously noted. Small intramural fluid identified measuring 3.5 x 1.4 cm and surrounding fat stranding is again noted in somewhat increased compared to previous exam. No evidence of perforation seen. Mild diverticulosis within the proximal aspects of the large bowel, appendix is normal, small bowel is normal, stomach and duodenum are normal. Most compatible with acute diverticulitis. Last saw Dr. Campbell on 02/03/2108 start PO Cipro and Flagyl, IBD panel was reviewed, and noted Dr. Campbell was concerned about the possibility of this being a public process with histology biopsy showing. CT was suggestive of inflammatory process. She was recommended to refill her antibiotics and station on 02/03/2018 see above). She was also started on sulfasalazine. She was going to follow-up after her CT. GI panel negative, calprotectin (fecal) pending, saccharomyces cerevisiae Abs pending. Inflammatory bowel disease panel on 01/25/2018 not suggestive of IBD Plan: Noted consult to GI, will make patient NPO pending consult and given abdominal pain remains NPO except meds Continue supportive care and discomfort management GI and DVT prophylaxis IVF repeat am labs serial abdominal exams Stop zosyn Restart Cipro/flagyl as this is what she was on as OP Continue sulfasalazine unless otherwise directed by GI Further recommendations pending attending attestation (2) DVT prophylaxis Current Visit: Yes Status: Acute heparin 5000 units SQ amb tid EPCDs (3) Essential hypertension Current Visit: No Status: Chronic continue home meds (4) Hypokalemia Current Visit: Yes Status: Chronic REplace K as indicated REpeat am labs Subjective Patient reports: no new complaints, feels better, still having pain, pain is less, voiding w/o difficulty, flatus, bowel movement, diarrhea, afebrile Objective Vital Signs - Last 8 Hours Temp Pulse Resp BP Pulse Ox 02/06/18 06:35 98.1 F 70 16 154/78 97 02/06/18 04:02 97.9 F 67 14 143/84 97 Intake and Output 02/05/18 02/06/18 02/06/18 23:59 07:59 15:59 Intake Total 200 / 200 220 / 220 120 / 120 Balance 200 / 200 220 / 220 120 / 120 Intake: IV Fluids 200 / 200 100 / 100 Zosyn 3.375 GM In 0.9 % Sodium 200 / 200 100 / 100 Chloride (Mini-Bag +) 100 ML @ 25 mls/hr IVPB Q8HR [facility] Rx#: [id number] Oral 0 / 0 120 / 120 120 / 120 Other: Meal Breakfast Percent of Meal Consumed 100% # Voids 1 1 # Bowel Movements 1 Weight 74.5 kg Patient Weight 02/06/18 23:59 Weight 74.5 kg - General physical appearance well developed, well nourished, no distress - ENT normal nares, normal mucosa - Respiratory normal expansion, normal respiratory effort, clear to auscultation - Cardiovascular Cardiovascular exam: Present: RRR - Abdomen Abdomen: Present: bowel sounds present, soft, non tender Hernia: none - Integumentary no abnormal pigmentation - Neurologic CN 2-12 grossly intact, normal coordination, normal sensation - Musculoskeletal normal gait, normal posture - Psychiatric oriented to time, oriented to person, oriented to place, speech is normal, memory intact - Labs 02/06/18 05:19 02/06/18 05:19 Diabetes panel 02/06/18 Range/Units 05:19 Sodium 139 (136-145) mEq/L Potassium 3.4 L (3.5-5.1) mEq/L Chloride 106 (98-107) mEq/L Carbon Dioxide 28 (23-29) mEq/L BUN 8 (8-23) mg/dL Creatinine 0.71 (0.60-1.20) mg/dL Glucose 89 (70-105) mg/dL Calcium 9.3 (8.6-10.3) mg/dL Calcium panel 02/06/18 Range/Units 05:19 Calcium 9.3 (8.6-10.3) mg/dL Pituitary panel 02/06/18 Range/Units 05:19 Sodium 139 (136-145) mEq/L Potassium 3.4 L (3.5-5.1) mEq/L Chloride 106 (98-107) mEq/L Carbon Dioxide 28 (23-29) mEq/L BUN 8 (8-23) mg/dL Creatinine 0.71 (0.60-1.20) mg/dL Glucose 89 (70-105) mg/dL Calcium 9.3 (8.6-10.3) mg/dL Adrenal panel 02/06/18 Range/Units 05:19 Sodium 139 (136-145) mEq/L Potassium 3.4 L (3.5-5.1) mEq/L Chloride 106 (98-107) mEq/L Carbon Dioxide 28 (23-29) mEq/L BUN 8 (8-23) mg/dL Creatinine 0.71 (0.60-1.20) mg/dL Glucose 89 (70-105) mg/dL Calcium 9.3 (8.6-10.3) mg/dL Consult Discharge Plan - Plan Referrals: Sapna Ramos, [employer] TECHNICIAN [Primary Care Provider] - <Farhan Campbell - Last Filed: 02/06/18 12:32> Date of Encounter: 02/06/18 Objective Vital Signs - Last 8 Hours Temp Pulse Resp BP Pulse Ox 02/06/18 10:22 98.2 F 78 16 136/72 96 02/06/18 06:35 98.1 F 70 16 154/78 97 Intake and Output 02/05/18 02/06/18 02/06/18 23:59 07:59 15:59 Intake Total 200 / 200 220 / 220 240 / 240 Balance 200 / 200 220 / 220 240 / 240 Intake: IV Fluids 200 / 200 100 / 100 Zosyn 3.375 GM In 0.9 % Sodium 200 / 200 100 / 100 Chloride (Mini-Bag +) 100 ML @ 25 mls/hr IVPB Q8HR [facility] Rx#: [id number] Oral 0 / 0 120 / 120 240 / 240 Other: Meal Breakfast Percent of Meal Consumed 100% # Voids 1 1 1 # Bowel Movements 1 Weight 74.5 kg Patient Weight 02/06/18 23:59 Weight 74.5 kg - Labs 02/06/18 05:19 02/06/18 05:19 Diabetes panel 02/06/18 Range/Units 05:19 Sodium 139 (136-145) mEq/L Potassium 3.4 L (3.5-5.1) mEq/L Chloride 106 (98-107) mEq/L Carbon Dioxide 28 (23-29) mEq/L BUN 8 (8-23) mg/dL Creatinine 0.71 (0.60-1.20) mg/dL Glucose 89 (70-105) mg/dL Calcium 9.3 (8.6-10.3) mg/dL Calcium panel 02/06/18 Range/Units 05:19 Calcium 9.3 (8.6-10.3) mg/dL Pituitary panel 02/06/18 Range/Units 05:19 Sodium 139 (136-145) mEq/L Potassium 3.4 L (3.5-5.1) mEq/L Chloride 106 (98-107) mEq/L Carbon Dioxide 28 (23-29) mEq/L BUN 8 (8-23) mg/dL Creatinine 0.71 (0.60-1.20) mg/dL Glucose 89 (70-105) mg/dL Calcium 9.3 (8.6-10.3) mg/dL Adrenal panel 02/06/18 Range/Units 05:19 Sodium 139 (136-145) mEq/L Potassium 3.4 L (3.5-5.1) mEq/L Chloride 106 (98-107) mEq/L Carbon Dioxide 28 (23-29) mEq/L BUN 8 (8-23) mg/dL Creatinine 0.71 (0.60-1.20) mg/dL Glucose 89 (70-105) mg/dL Calcium 9.3 (8.6-10.3) mg/dL - Attending Attestation I have personally performed a face to face evaluation on this patient. I have reviewed and agree with the care plan. History and Exam by me shows: I reviewed the above assessment and evaluation and agree with the above plan. Patient is known to my service recently had a CT scan of the abdomen and pelvis this past Tuesday. She is been following up with me due to persistent pain as well as diarrhea. She has been having the symptoms of pain and diarrhea for about 7-8 months. She has been treated with oral antibiotics and had an initial CT scan performed after colonoscopy was concern about a possible mass effect versus severe inflammation of the sigmoid colon. She is had a number of studies including an IBD profile which is been negative. This admission she has had additional stool studies which all have been negative. I agree with the IV antibiotics and will follow along to see whether or not her symptoms improved. I explained to the patient and present family member that if her symptoms do not improve over the next 2-3 days that she may require a sigmoid colectomy. The patient agrees with the above plan.
[2018-02-06 11:11] LABS: Carcinoembryonic Antigen 1.2 ng/mL (Less than 5.0)
[2018-02-06] MEDS: 0.9 % Sodium Chloride 1,000 ML IVC SCH ×2 (12:34→15:38)
[2018-02-06] MEDS: sulfaSALAzine 500 MG TABLET PO SCH ×3 (12:34→21:40)
--- NOTE | 2018-02-06 12:39 | Gastroenterology Consult Note ---
<MuñozOrtiz Osorio - Last Filed: 02/06/18 12:35> Date of Encounter: 02/06/18 Time of Encounter: 11:25 - Assessment and plan (1) Diverticulitis of large intestine with abscess Current Visit: Yes Status: Acute Assessment and plan: CT A/P on 01/13/2018 showed sigmoid wall thickening and was started on a 10 day course of Cipro and Flagyl. Colonoscopy was completed 01/13 that showed a large polypoid, circumferential, partially obstructing mass in recto-sigmoid colon at 18 cm c/w hyperplastic polyp. No indication of IBD noted on colonoscopy. CT A/P 02/03/2018 shows marked mural thickening involving the sigmoid colon, with surrounding inflammatory stranding, the degree of mural thickening and fat stranding has increased when compared the previous exam, evidence of a probable intramural abscess along the proximal aspect of that, which also appears mildly increased when compared previous exam, these findings are most compatible with severe acute diverticulitis although considered less likely, an underlying mass still remains in the differential. ASCA and ANCA within normal limits on 01/25/2018. This is not typical of IBD. Recommend continuing antibiotics for diverticulitis , and if indicated possible drainage. Qualifiers: Diverticulitis bleeding: without bleeding Qualified Code(s): K57.20 - Diverticulitis of large intestine with perforation and abscess without bleeding - Time Spent With Patient Total time spent is greater than 50% in coordination of care (as documented) at patient's floor/unit and/or counseling patient: GI History of Present Illness - Data of Consult Patient: new to practice Consult date: 02/06/18 Requesting Physician: Liz Milian MD - Consult Narrative Reason for consult: Sigmoid inflammation, IBD vs diverticulitis History of present illness: Ms. Garcia is a 72 year old female with PMHx of HLD, and HTN presented with month long history of diarrhea, small stools, and lower abdominal pain. CT A/P on 01/13/2018 showed sigmoid wall thickening and was started on a 10 day course of Cipro and Flagyl. She was seen on 02/02/[address] Campbell who ordered a second CT scan and he began another round of oral antibiotics, but only took 1 days worth. [facility] called with results and patient was instructed to present to hospital for admission and IV antibiotics. She is still having intermittent LLQ pain which is crampy, sometimes sharp. It can be worse before a BM and sometimes is relieved after a BM. She often feels like she isnt fully evacuated after having a BM. Denies melena or hematochezia. She often has diarrhea and soft stools, then will pass small firm stool. She has lost 33 lbs since May. Procedures: Colonoscopy 01/13/2018 Dr. Campbell: with large polypoid, circumferential, partially obstructing mass in recto-sigmoid colon at 18 cm c/w hyperplastic polyp. NSAIDs: None Anticoagulation: None Past Med Surg Social Fam HX - Past Medical History Medical history: hyperlipidemia, hypertension Psychiatric history: depression - Past Surgical History Surgical History: no surgical history Additional surgical history: Colonscopy December 2017 and heart cath about 2007. - Social History Smoking Status: Never smoker Smokeless Tobacco Status: No Alcohol use: none Drug use: none - Family History Mother Hx Family Neurologic Disorders: Yes (Cerebral hemmorhage) Father Family Member Ethnicity: Non- Hx Family Neurologic Disorders: Yes (Stroke) - Gastrointestinal Gastrointestinal: Present: as per HPI - Constitutional Constitutional: as per HPI - EENT Eyes: as per HPI Ears: Present: as per HPI Nose, mouth and throat: Present: as per HPI - Cardiovascular Cardiovascular ROS: Present: as per HPI - Respiratory Respiratory IM: Present: as per HPI - Genitourinary Genitourinary: Absent: change in color, Urinary frequency - Neurological ROS Neurological GI: Present: as per HPI - Hematologic/Lymphatic Hematologic/Lymphatic pediatric: Present: as per HPI - Musculoskeletal Musculoskeletal ROS GI: Present: as per HPI - Integumentary Integumentary GI: Present: as per HPI - Psychiatric ROS Psychiatric GI: Present: as per HPI - Endocrine Endocrine IM: Present: as per HPI - Constitutional Vitals: Temp Pulse Resp BP Pulse Ox 98.2 F 78 16 136/72 96 02/06/18 10:22 02/06/18 10:22 02/06/18 10:22 02/06/18 10:22 02/06/18 10:22 General appearance: Present: cooperative, A&O X 3, no acute distress, answers questions appropriately - Head Head exam: Present: atraumatic, normocephalic - Eye Eye exam: Present: normal appearance, sclera anicteric - ENT ENT exam: Present: mucous membranes moist - Neck Neck exam general surgery: Present: normal inspection, trachea midline - Respiratory Respiratory exam: Present: CTAB. Absent: rales, rhonchi - Cardiovascular Cardiovascular exam: Present: RRR, +S1, +S2 - GI/Abdominal GI/Abdominal exam: Present: soft, tenderness (LLQ), no peritoneal signs. Absent : distended, firm, guarding - Rectal Rectal exam: Present: deferred - Extremities Exam Extremities exam: Present: warm - Neurological Exam Neurological exam: Present: no focal deficits - Psychiatric Psychiatric exam: Present: normal affect, normal mood - Skin Skin exam: Present: dry, intact, normal color, warm Results - Labs CBC & Chem 7: 02/06/18 05:19 02/06/18 05:19 Labs: Last Result Calcium 9.3 mg/dL (8.6-10.3) 02/06/18 05:19 Entire Visit Hgb 11.7 g/dL (11.5-15.4) 02/06/18 05:19 Hct 36.0 % (35.3-44.9) 02/06/18 05:19 Carcinoembryonic Ag 1.2 ng/mL (Less than 5.0) 02/06/18 05:19 Consult Discharge Plan - Plan Referrals: Sapna Ramos NURSE EXAMINER [Primary Care Provider] - <Lizette Rosen - Last Filed: 02/06/18 17:41> Date of Encounter: 02/06/18 Time of Encounter: 15:00 - Time Spent With Patient Total time spent is greater than 50% in coordination of care (as documented) at patient's floor/unit and/or counseling patient: GI History of Present Illness - Data of Consult Requesting Physician: Farhan Campbell MD - Consult Narrative History of present illness: Ms. Garcia is a 72 year old female - Constitutional Vitals: Temp Pulse Resp BP Pulse Ox 99.1 F 70 16 138/78 95 02/06/18 14:41 02/06/18 14:41 02/06/18 14:41 02/06/18 14:41 02/06/18 14:41 Results - Labs CBC & Chem 7: 02/06/18 05:19 02/06/18 05:19 Labs: Last Result Calcium 9.3 mg/dL (8.6-10.3) 02/06/18 05:19 Entire Visit Hgb 11.7 g/dL (11.5-15.4) 02/06/18 05:19 Hct 36.0 % (35.3-44.9) 02/06/18 05:19 Carcinoembryonic Ag 1.2 ng/mL (Less than 5.0) 02/06/18 05:19 - Attending Attestation I have personally performed a face to face evaluation on this patient. I have reviewed and agree with the care plan. History and Exam by me shows: Patient seen. Patient with lower abdominal cramping since April. Has been delaying her care because of loss of her son. Denies any diarrhea. Has noticed change in bowel habit. CT scan showed showed thickening of a segment of sigmoid colon. Colonoscopy with biopsies were done by Dr. Campbell and patient treated with antibiotics but no relief. Repeat scan showed that the inflammation is getting worse with possible intramural abscesses in the colon wall. CAT scan was reviewed. Findings are not typical of IBD. And patient has not responded to antibiotics. Assessment: Colitis with intramural abscess of a segment of the sigmoid colon. Recommendation: D/W Dr. Campbell if no dramatic improvement over the next 24-48 hour with IV antibiotic then possibl segmental colon resection.
[2018-02-06] MEDS: MetroNIDAZOLE 500 MG/100 ML 500 MG/100 ML BAG IVPB SCH (15:43)
[2018-02-07] MEDS: MetroNIDAZOLE 500 MG/100 ML 500 MG/100 ML BAG IVPB SCH ×2 (00:24→08:03)
[2018-02-07] MEDS: 0.9 % Sodium Chloride 1,000 ML IVC SCH ×5 (02:00→17:40)
[2018-02-07] MEDS: *HR* Heparin 5,000 UNIT/ML VIAL SQ SCH ×2 (06:31→17:42)
[2018-02-07 06:53] LABS: Basophils # 0.1 K/mcL (0.0-0.2); Basophils % 0.6 %; Eosinophils # 0.2 K/mcL (0.0-0.6); Eosinophils % 2.3 %; Hematocrit 32.8 % (35.3-44.9); Hemoglobin 10.8 g/dL (11.5-15.4); Immature Granulocytes % 0.2 % (0-4); Lymphocytes # 1.7 K/mcL (0.6-4.6); Lymphocytes % 20.9 %; Mean Corpuscular HGB Conc 32.9 g/dL (31.6-35.5); Mean Corpuscular Hemoglobin 27.8 pg (28.0-33.3); Mean Corpuscular Volume 84.5 fL (83.0-100.0); Mean Platelet Volume 10.2 fL (9.4-12.4); Monocytes % 12.3 %; Neutrophils # 5.2 K/mcL (1.6-8.9); Platelet Count 230 K/mcL (140-400); Red Blood Count 3.88 M/mcL (3.82-4.97); Red Cell Distribution Width 13.8 % (11.5-14.5); Segmented Neutrophils % 63.7 %
[2018-02-07 07:18] LABS: BUN/Creatinine Ratio 9 (6-26); Blood Urea Nitrogen 6 mg/dL (8-23); Calcium 9.1 mg/dL (8.6-10.3); Carbon Dioxide 26 mEq/L (23-29); Chloride 105 mEq/L (98-107); Glucose 91 mg/dL (70-105); Osmolality,Calculated 283 (280-300); Potassium 3.2 mEq/L (3.5-5.1); Sodium 138 mEq/L (136-145); eGFR For Non-African Americans > 60 (> 60)
[2018-02-07] MEDS: sulfaSALAzine 500 MG TABLET PO SCH (08:03)
[2018-02-07] MEDS ORDERED: Potassium Chloride 40 MEQ, Lidocaine 1% 2 ML in D5% in Water 500 ML IVPB ONE (08:29)
[2018-02-07] MEDS ORDERED: Lidocaine -MPF 1% 5 ML AMPUL INFILT ONE (08:29)
[2018-02-07] MEDS ORDERED: Dicyclomine 20 MG/2 ML AMPUL IM PRN (08:41)
[2018-02-07] MEDS ORDERED: Acetaminophen IV 1,000 MG/100 ML INFUS..BTL IVPB ONE (08:41)
[2018-02-07 09:00] LABS: Albumin 3.3 g/dL (3.5-5.7)
--- NOTE | 2018-02-07 09:16 | General Surgery Progress Note ---
<Gabriella Aldrich - Last Filed: 02/07/18 09:33> Date of Encounter: 02/07/18 Time of Encounter: 08:45 - Assessment and Plan (1) Abnormal CT of the abdomen Current Visit: Yes Status: Acute Diverticulitis vs IBD (less llikely vs malignancy Brief summary: CT 01/13/2018 noted approximately 12 cm segment of significant inflammatory changes/thickening of the wall of the sigmoid colon with small amount of surrounding free fluid. Findings compatible with acute diverticulitis however given history of colonic mass cannot exclude malignancy. No free air. No abscess. CT noted again 12 cm segment of thickening of the sigmoid colon as previously noted. Small intramural fluid identified measuring 3.5 x 1.4 cm and surrounding fat stranding is again noted in somewhat increased compared to previous exam. No evidence of perforation seen. Mild diverticulosis within the proximal aspects of the large bowel, appendix is normal, small bowel is normal, stomach and duodenum are normal. Most compatible with acute diverticulitis. Last saw Dr. Campbell on 02/03/2108 start PO Cipro and Flagyl, IBD panel was reviewed, and noted Dr. Campbell was concerned about the possibility of this being a public process with histology biopsy showing. CT was suggestive of inflammatory process. She was recommended to refill her antibiotics and station on 02/03/2018 see above). She was also started on sulfasalazine. She was going to follow-up after her CT, and consderation/discussion had already been given to resection given that she was not responsive to therapy. GI panel negative, calprotectin (fecal) pending, saccharomyces cerevisiae Abs pending. Inflammatory bowel disease panel on 01/25/2018 not suggestive of IBD, GI evaluated patient and feels finding more consistent with colitis and recommend resection as well. 02/07/2018, she reports no clinical improvement and now "needs to lay on her left side to keep from hurting." Shes a-febrile and VSS. She has not used pain medication for fear of narcotics. She reports she has never had any procedures and is nervous. Plan: Clears, no sugar, carbonation, or red dye Bowel prep for surgical intervention in the next 24-48 hours PO Flagy, neomycin, and laxatives IVF (titrate MIV/TPN to TPN goal. May stop MIV when TPN at goal) Continue supportive care and discomfort management PICC TPN GI and DVT prophylaxis repeat am labs type and screen, coags added serial abdominal exams Cotninue IV Atbx (cipro flagyl) Stop sulfasalazine as unlikely IBD Further recommendations pending attending attestation recommendations, risks, and benefits have been reviewed with the patient and her daughter and she is agreeable to proceed. A signed consent is placed on the hard chart. She was able to achieve greater than 4 Mets of activity as an outpatient without symptoms of angina. Will obtain EKG for baseline/pre-op. No further cardiovascular risk stratification indicated. (2) DVT prophylaxis Current Visit: Yes Status: Acute heparin 5000 units SQ amb tid EPCDs (3) Essential hypertension Current Visit: Yes Status: Chronic continue home meds (5) Hypokalemia Current Visit: Yes Status: Acute REplace K as indicated REpeat am labs Subjective Patient reports: still having pain, voiding w/o difficulty, flatus, bowel movement, diarrhea, nausea, afebrile Objective Vital Signs - Last 8 Hours Temp Pulse Resp BP Pulse Ox 02/07/18 06:49 98.4 F 76 16 158/80 93 02/07/18 05:50 98.4 F 71 14 132/76 96 Intake and Output 02/06/18 02/07/18 02/07/18 23:59 07:59 15:59 Intake Total 660 / 660 1220 / 1220 200 / 200 Output Total 0 / 0 Balance 660 / 660 1220 / 1220 200 / 200 Intake: IV Fluids 300 / 300 1100 / 1100 200 / 200 0.9 % Sodium Chloride 1,000 ML 1000 / 1000 @ 125 mls/hr IVC .Q8H [facility] Rx#: [id number] Cipro Premix 400 MG/200 ML 400 200 / 200 200 / 200 mg In 200 ml @ 200 mls/hr IVPB Q12HR [facility] Rx#:[id number] Flagyl Premix 500 MG/100 ML 500 100 / 100 100 / 100 mg In 100 ml @ 100 mls/hr IVPB Q8HR [facility] Rx#:[id number] Oral 360 / 360 120 / 120 Output: Urine 0 / 0 Other: Meal Dinner Percent of Meal Consumed 50% Stool Size Small Stool Consistency liquid Stool Color Brown Yellow # Voids 1 # Bowel Movements 1 # Bowel Movement Diapers 1 Weight 74.5 kg Patient Weight 02/07/18 23:59 Weight 74.5 kg - General physical appearance no distress, moderate pain (requires her to lay on her left side) - Eyes normal ocular movement - ENT atraumatic, normocephalic - Neck Neck exam: trachea midline - Respiratory normal expansion, normal respiratory effort, clear to auscultation - Cardiovascular Cardiovascular exam: Present: RRR - Abdomen Abdomen: Present: bowel sounds present (hypoactive), soft, tender Hernia: none - Integumentary no growths - Neurologic normal coordination, normal sensation - Musculoskeletal normal gait, normal posture - Psychiatric oriented to time, oriented to person, oriented to place, speech is normal, memory intact - Labs 02/07/18 06:18 02/07/18 06:18 Diabetes panel 02/06/18 02/07/18 Range/Units 05:19 06:18 Sodium 139 138 (136-145) mEq/L Potassium 3.4 L 3.2 L (3.5-5.1) mEq/L Chloride 106 105 (98-107) mEq/L Carbon Dioxide 28 26 (23-29) mEq/L BUN 8 6 L (8-23) mg/dL Creatinine 0.71 0.65 (0.60-1.20) mg/dL Glucose 89 91 (70-105) mg/dL Calcium 9.3 9.1 (8.6-10.3) mg/dL Albumin 3.3 L (3.5-5.7) g/dL Calcium panel 02/06/18 02/07/18 Range/Units 05:19 06:18 Calcium 9.3 9.1 (8.6-10.3) mg/dL Albumin 3.3 L (3.5-5.7) g/dL Pituitary panel 02/06/18 02/07/18 Range/Units 05:19 06:18 Sodium 139 138 (136-145) mEq/L Potassium 3.4 L 3.2 L (3.5-5.1) mEq/L Chloride 106 105 (98-107) mEq/L Carbon Dioxide 28 26 (23-29) mEq/L BUN 8 6 L (8-23) mg/dL Creatinine 0.71 0.65 (0.60-1.20) mg/dL Glucose 89 91 (70-105) mg/dL Calcium 9.3 9.1 (8.6-10.3) mg/dL Adrenal panel 02/06/18 02/07/18 Range/Units 05:19 06:18 Sodium 139 138 (136-145) mEq/L Potassium 3.4 L 3.2 L (3.5-5.1) mEq/L Chloride 106 105 (98-107) mEq/L Carbon Dioxide 28 26 (23-29) mEq/L BUN 8 6 L (8-23) mg/dL Creatinine 0.71 0.65 (0.60-1.20) mg/dL Glucose 89 91 (70-105) mg/dL Calcium 9.3 9.1 (8.6-10.3) mg/dL Albumin 3.3 L (3.5-5.7) g/dL - VTE Documentation of Mechanical Device: Intermittent pneumatic compression device Consult Discharge Plan - Plan Referrals: Sapna Ramos CNP [Primary Care Provider] - <Farhan Campbell - Last Filed: 02/09/18 12:35> Date of Encounter: 02/07/18 Objective Vital Signs - Last 8 Hours Temp Pulse Resp BP Pulse Ox 02/09/18 11:31 97.9 F 71 17 119/66 96 02/09/18 07:47 97.6 F 76 17 123/69 95 Intake and Output 02/08/18 02/09/18 02/09/18 23:59 07:59 15:59 Intake Total 100 / 100 Output Total 335 / 335 775 / 775 Balance -335 / -335 100 / 100 -775 / -775 Intake: IV Fluids 100 / 100 Flagyl Premix 500 MG/100 ML 500 100 / 100 mg In 100 ml @ 100 mls/hr IVPB Q8HR [facility] Rx#:[id number] Output: Urine 120 / 120 700 / 700 Estimated Blood Loss 40 / 40 Urine Amount (Catheter) 75 / 75 Wound Drainage 100 / 100 75 / 75 Right Upper Abdomen 60 / 60 75 / 75 Other: Weight 74.9 kg Blood Glucose* 275 138 Patient Weight 02/09/18 23:59 Weight 74.9 kg - Labs 02/09/18 09:00 02/09/18 04:14 Diabetes panel 02/09/18 Range/Units 04:14 Sodium 132 L (136-145) mEq/L Potassium 3.4 L (3.5-5.1) mEq/L Chloride 109 H (98-107) mEq/L Carbon Dioxide 25 (23-29) mEq/L BUN 13 (8-23) mg/dL Creatinine 0.68 (0.60-1.20) mg/dL Glucose 267 H (70-105) mg/dL Calcium 8.9 (8.6-10.3) mg/dL Calcium panel 02/09/18 Range/Units 04:14 Calcium 8.9 (8.6-10.3) mg/dL Phosphorus 2.0 L (2.7-4.5) mg/dL Pituitary panel 02/09/18 Range/Units 04:14 Sodium 132 L (136-145) mEq/L Potassium 3.4 L (3.5-5.1) mEq/L Chloride 109 H (98-107) mEq/L Carbon Dioxide 25 (23-29) mEq/L BUN 13 (8-23) mg/dL Creatinine 0.68 (0.60-1.20) mg/dL Glucose 267 H (70-105) mg/dL Calcium 8.9 (8.6-10.3) mg/dL Adrenal panel 02/09/18 Range/Units 04:14 Sodium 132 L (136-145) mEq/L Potassium 3.4 L (3.5-5.1) mEq/L Chloride 109 H (98-107) mEq/L Carbon Dioxide 25 (23-29) mEq/L BUN 13 (8-23) mg/dL Creatinine 0.68 (0.60-1.20) mg/dL Glucose 267 H (70-105) mg/dL Calcium 8.9 (8.6-10.3) mg/dL - Attending Attestation I have personally performed a face to face evaluation on this patient. I have reviewed and agree with the care plan. History and Exam by me shows: Review the above assessment and evaluation and agree with the above plan. I received a call from the gastrointestinal specialist yesterday evening who stated that the area in question likely would not be amendable to antibiotic therapy. On examination she does have increased abdominal pains our plan is to go ahead and proceed with a planned sigmoid colectomy via laparoscopic approach. She will be given a bowel prep and antibiotics. Risk and benefits are known to the patient and family member and they agree to the above plan.
[2018-02-07 09:30] LABS: Magnesium 1.7 mg/dL (1.6-2.6); Phosphorous 3.6 mg/dL (2.7-4.5); Triglycerides 86 mg/dL (< 150)
[2018-02-07] MEDS ORDERED: D10% in Water 500 ML IVC PRN (11:46)
[2018-02-07] MEDS ORDERED: metroNIDAZOLE 500 MG TABLET PO SCH (14:00)
[2018-02-07] MEDS: metroNIDAZOLE 500 MG TABLET PO SCH ×3 (14:32→22:04)
[2018-02-07] MEDS ORDERED: Polyethylene Glycol 3350 255 GM POWDER PO ONE (15:00)
[2018-02-07] MEDS ORDERED: Clinimix E 5%-15% SOLUTION 2,000 ML with MVI, adult with vitamin K 10 ML IVC SCH (17:00)
[2018-02-07] MEDS: Ondansetron 4 MG/2 ML VIAL IVP PRN (17:37)
--- NOTE | 2018-02-07 22:19 | Anesthesia Evaluation PreOp ---
Date of Encounter: 02/08/18 Time of Encounter: 22:16 - Past History Planned Operation: Lap. 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: Other (Depression, Migraines) Other Medical History: Denies Any Significant HX Anesthesia History: No Prior Anesthetic Complications, Past Anesthesia ( colonoscopy) : No Alcohol Use: none Drug use: none Medications and Allergies Rosuvastatin Calcium [Crestor] 5 mg PO DAILY 01/24/16 [History] Triamterene/HCTZ 37.5/25mg [Dyazide] 37.5 mg PO DAILY 01/24/16 [History] Biotin Forte 1 each PO DAILY 11/05/16 [History] Ciprofloxacin [Cipro] 500 mg PO BID 02/04/18 [History] Potassium Chloride [Klor-Con 10] 30 meq PO DAILY 02/04/18 [History] Sulfasalazine [Azulfidine] 500 mg PO QID 02/04/18 [History] metroNIDAZOLE [Metronidazole] 500 mg PO BID 02/04/18 [History] 3 Allergy/AdvReac Type Severity Reaction Status Date / Time No Known Allergies Allergy Verified 01/25/16 10:41 - Meds/Allergy Pre-op Review Medications Reviewed: Yes Allergies Reviewed: Yes Beta Blockers on Current Med List: No Anesthesia Results - Labs 02/08/18 04:00 02/08/18 04:00 Vital Signs/O2 Sat, Most Current Temp Pulse Resp BP Pulse Ox 98.3 F 78 18 139/81 92 02/08/18 03:33 02/08/18 03:33 02/08/18 03:33 02/08/18 03:33 02/08/18 03:33 Laboratory Tests 02/07/18 02/07/18 06:18 09:30 Albumin 3.3 L Prealbumin 14.2 L Anesthesia Exam Vital Signs/O2 Sat, Most Current Temp Pulse Resp BP Pulse Ox 98.3 F 78 18 139/81 92 02/08/18 03:33 02/08/18 03:33 02/08/18 03:33 02/08/18 03:33 02/08/18 03:33
[2018-02-08] MEDS: Ondansetron 4 MG/2 ML VIAL IVP PRN ×2 (03:54→20:10)
[2018-02-08 04:26] LABS: Basophils % 0.5 %; Eosinophils # 0.2 K/mcL (0.0-0.6); Eosinophils % 2.3 %; Hemoglobin 11.2 g/dL (11.5-15.4); Immature Granulocytes % 0.2 % (0-4); Lymphocytes # 1.4 K/mcL (0.6-4.6); Lymphocytes % 16.1 %; Mean Corpuscular HGB Conc 32.9 g/dL (31.6-35.5); Mean Corpuscular Hemoglobin 27.9 pg (28.0-33.3); Mean Corpuscular Volume 84.6 fL (83.0-100.0); Mean Platelet Volume 10.3 fL (9.4-12.4); Monocytes # 1.2 K/mcL (0.0-1.3); Monocytes % 14.2 %; Neutrophils # 5.8 K/mcL (1.6-8.9); Platelet Count 236 K/mcL (140-400); Red Blood Count 4.02 M/mcL (3.82-4.97); Red Cell Distribution Width 13.7 % (11.5-14.5); Segmented Neutrophils % 66.7 %
[2018-02-08 04:42] LABS: BUN/Creatinine Ratio 11 (6-26); Blood Urea Nitrogen 6 mg/dL (8-23); Calcium 9.2 mg/dL (8.6-10.3); Carbon Dioxide 26 mEq/L (23-29); Chloride 104 mEq/L (98-107); Glucose 118 mg/dL (70-105); Magnesium 1.7 mg/dL (1.6-2.6); Osmolality,Calculated 281 (280-300); Phosphorous 3.2 mg/dL (2.7-4.5); Potassium 3.1 mEq/L (3.5-5.1); Sodium 136 mEq/L (136-145); eGFR For Non-African Americans > 60 (> 60)
[2018-02-08] MEDS: *HR* Heparin 5,000 UNIT/ML VIAL SQ SCH (05:39)
[2018-02-08] MEDS: MetroNIDAZOLE 500 MG/100 ML 500 MG/100 ML BAG IVPB SCH ×3 (08:37→23:44)
--- NOTE | 2018-02-08 11:02 | Anesthesia Evaluation PreOp ---
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 History: Other (DEPRESSION, MIGRAINES) Other Medical History: Other (HYPOKALEMIA, SIGMOID DIVERTICULITIS WITH INTRAMURAL ABCESS - FAILED NON-OPERATIVE MANGEMENT, HAS BEEN NPO FOR 48 HRS - TPN) Anesthesia History: No Prior Anesthetic Complications, Past Anesthesia Alcohol Use: none Drug use: none Medications and Allergies Rosuvastatin Calcium [Crestor] 5 mg PO DAILY 01/24/16 [History] Triamterene/HCTZ 37.5/25mg [Dyazide] 37.5 mg PO DAILY 01/24/16 [History] Biotin Forte 1 each PO DAILY 11/05/16 [History] Ciprofloxacin [Cipro] 500 mg PO BID 02/04/18 [History] Potassium Chloride [Klor-Con 10] 30 meq PO DAILY 02/04/18 [History] Sulfasalazine [Azulfidine] 500 mg PO QID 02/04/18 [History] metroNIDAZOLE [Metronidazole] 500 mg PO BID 02/04/18 [History] 3 Allergy/AdvReac Type Severity Reaction Status Date / Time No Known Allergies Allergy Verified 01/25/16 10:41 - Meds/Allergy Pre-op Review Medications Reviewed: Yes Allergies Reviewed: Yes Beta Blockers on Current Med List: No Anesthesia Results - Labs 02/08/18 04:00 02/08/18 04:00 Laboratory Tests 02/06/18 02/07/18 02/08/18 05:19 06:18 03:54 Calcium Phosphorus Magnesium Albumin 3.3 L Carcinoembryonic Ag 1.2 Blood Type A POSITIVE Antibody Screen NEGATIVE 02/08/18 04:00 Calcium 9.2 Phosphorus 3.2 Magnesium 1.7 Albumin Carcinoembryonic Ag Blood Type Antibody Screen - Imaging Additional studies: TTE 05/2016: LVEF 60% GRADE 1 DIASTOLIC DYSFUNCTION MILD CONCENTRIC LVH STRESS TEST 05/2016 NO REVERSIBLE ISCHEMIA Anesthesia Exam Vital Signs/O2 Sat, Most Current Temp Pulse Resp BP Pulse Ox 98.7 F 76 16 145/73 96 02/08/18 06:37 02/08/18 06:37 02/08/18 06:37 02/08/18 06:37 08/15/18 07:30 Height: 1.57 M Weight: 75 KG BMI 30 NPO (# of Hours): 8 - HEENT Pupil (Motor): Pupils equal Mallampati: II Teeth: Normal Oral Opening: Greater than 3 - PEDIATRICIAN/MEDICAL DOCTOR LOC: Oriented - Cardiac Rhythm: Regular - Pulmonary Breath Sounds: bilateral Clear Respiratory Effort: Symmetrical - Additional Findings IV ACCESS - RIGHT AC 3 LUMEN PICC & RIGHT FOREARM 20GA Anesthesia Assess/Plan ASA Score: 3 Modified Stefan Scale for Level of Consciousness: Cooperative, oriented, and tranquil Anesthetic Plan: General, Regional (TAP BLOCK DISCUSSED WITH PATIENT IF PROCEDURE CONVERTS TO OPEN) Monitoring Plan: Standard Monitors Recovery Plan: PACU Anesthesia Note - Note Note: Active Medications Generic Name Dose Route Start Last Admin Trade Name Freq PRN Reason Stop Dose Admin Atorvastatin Calcium 10 mg 02/04/18 09:00 02/08/18 08:33 Lipitor PO 08/06/18 09:01 Not Given DAILY [facility] Heparin Sodium (Porcine) 5,000 unit 02/04/18 06:00 02/08/18 05:39 Heparin SQ 08/06/18 06:01 Not Given Q12HCO [facility] Hydralazine HCl 10 mg 02/06/18 11:08 Hydralazine IVP 08/08/18 11:09 Q6HR PRN Hypertension Ciprofloxacin Lactate 400 mg in 200 mls @ 200 mls/hr 02/06/18 18:00 02/08/18 05:37 Cipro Premix 400 Mg/200 Ml IVPB 08/08/18 18:01 200 mls/hr Q12HR [facility] Administration Sodium Chloride 1,000 mls @ 125 mls/hr 02/07/18 08:41 02/07/18 17:40 0.9 % Sodium Chloride IVC 08/08/18 11:01 75 mls/hr .Q8H [facility] Administration Metronidazole 500 mg in 100 mls @ 100 mls/hr 02/08/18 08:00 02/08/18 09:37 Flagyl Premix 500 Mg/100 Ml IVPB 08/10/18 08:01 Infused Q8HR [facility] Infusion Dextrose 500 mls @ 50 mls/hr 02/07/18 11:46 Dextrose 10% Water 500 Ml Ivbag IVC 08/09/18 11:47 .Q10H PRN TPN delayed or interrupted Fat Emulsion Intravenous 250 mls @ 21 mls/hr 02/07/18 17:00 02/08/18 05:40 Intralipid 20% IVPB 08/09/18 17:01 Infused DAILY@1700 [facility] Infusion Multivitamins 10 ml/ Amino 2,010 mls @ 50 mls/hr 02/07/18 17:00 02/07/18 17: 42 Acids/Electrolytes IVC 02/08/18 16:59 50 mls/hr .Q24H [facility] 50 mls/hr Protocol Administration Multivitamins 10 ml/ Amino 2,010 mls @ 83.3 mls/hr 02/08/18 17:00 Acids/Electrolytes IVC 02/09/18 16:59 .Q24H [facility] Protocol Morphine Sulfate 5 mg 02/03/18 20:43 Roxanol Oral Conc SL 08/05/18 20:44 Q4HR PRN Pain Naloxone HCl 0.4 mg 02/04/18 13:15 Narcan IVP 08/06/18 13:16 Q2MIN PRN SEE COMMENTS Omeprazole 20 mg 02/04/18 07:30 02/08/18 08:33 Prilosec PO 08/06/18 07:31 Not Given DAILY@0730 [facility] Protocol Ondansetron HCl 4 mg 02/03/18 20:41 02/08/18 03:54 Zofran IVP 08/05/18 20:42 4 mg Q6HR PRN Administration Nausea Protocol Triamterene/HCTZ 1 each 02/04/18 09:00 02/08/18 08:33 Dyazide PO 08/06/18 09:01 Not Given DAILY [facility]
--- NOTE | 2018-02-08 11:52 | Electrocardiograph Report ---
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
[2018-02-08] MEDS ORDERED: *HR* FentaNYL (PF) 100 MCG/2 ML VIAL ONE (15:35)
[2018-02-08] MEDS ORDERED: *HR* Propofol 200 MG/20 ML VIAL IVP ONE (15:35)
[2018-02-08] MEDS ORDERED: *HR* Midazolam HCl 2 MG/2 ML VIAL ONE (15:35)
[2018-02-08] MEDS ORDERED: *HR* Succinylcholine 200 MG/10 ML VIAL IVP ONE (15:37)
[2018-02-08] MEDS ORDERED: *HR* Rocuronium Bromide 50 MG/5 ML VIAL ONE ×2 (15:37→18:16)
[2018-02-08] MEDS ORDERED: Lidocaine -MPF 2% 2 ML VIAL ONE (15:37)
[2018-02-08] MEDS ORDERED: Bupivacaine/EPI 1:200k 0.5%PF 30 ML VIAL ONE (15:53)
[2018-02-08] MEDS ORDERED: CefOXitin 1,000 MG VIAL ONE (15:55)
[2018-02-08] MEDS ORDERED: MetroNIDAZOLE 500 MG/100 ML 500 MG/100 ML BAG IVPB ONE (16:09)
[2018-02-08] MEDS ORDERED: EPHEDrine 50 MG/ML VIAL ONE ×2 (16:23→17:35)
[2018-02-08] MEDS ORDERED: *HR* OxyCODONE Immed Rel 5 MG TABLET PO PRN (16:42)
[2018-02-08] MEDS ORDERED: *HR* Promethazine 25 MG/ML VIAL IVP PRN (16:42)
[2018-02-08] MEDS ORDERED: Clinimix E 5%-15% SOLUTION 2,000 ML with MVI, adult with vitamin K 10 ML IVC SCH ×2 (17:00→20:46)
[2018-02-08] MEDS ORDERED: Neostigmine Methylsulfate 3 MG/3 ML SYRINGE ONE (18:51)
[2018-02-08] MEDS ORDERED: *HR* Morphine 10 MG/ML VIAL ONE (19:05)
--- NOTE | 2018-02-08 19:08 | Operative Note ---
Date of procedure: 02/08/18 Pre-op diagnosis: Sigmoid inflammation/abnormal CT abdomen Post-op diagnosis: same Procedure: Laparoscopic assisted sigmoid colectomy Anesthesia: GETA Surgeon: Farhan Campbell Was there an perioperative assistant present: Yes Casting Machine Service Operator: Petra Castro Casting Machine Service Operator Other: LINDA Ashley Estimated blood loss (cc): 40 Specimen: sigmoid colon, anastamotic rings Condition: stable Disposition: PACU Procedure in Detail: Date of surgery: 02/08/18 After properly identifying the patient, the patient was brought to the operating room and placed supine position. After proper IV sedation was achieved followed by general endotracheal intubation, the patient's abdomen was prepped and draped in a normal sterile fashion. A timeout was performed noting the patient's name and type of procedure to be performed. A 15 blade scalpel was used to make an infraumbilical incision along the midline. Dissection was carried down to the subcutaneous tissue to the rectus fascia was encountered and incised. A 12 mm port was placed through the incision and the abdomen was insufflated with carbon dioxide. A laparoscopic camera was placed through the port which showed no injury to the intra- abdominal organs upon entry. A right upper quadrant 5 mm port and a left lower quadrant 12 mm port were then placed under direct camera visualization. The patient was placed in a reverse Trendelenburg position with the right side down tilt. The descending colon was examined and the descending colon was dissected inferiorly to superiorly off the lateral attachments with Bovie cauterization and usage of the laparoscopic LigaSure. This dissection was carried up towards the splenic flexure which was also dissected free of its attachments with blunt dissection and usage of the laparoscopic LigaSure. This allowed for the rotation of the splenic flexure and descending colon for eventual resection and anastomosis of the sigmoid segment. Approximate time for the dissection was 45 minutes. Once this was performed the decision was made to conclude the laparoscopic procedure and open the abdomen by removing all ports and making a midline incision from the 12 mm port site inferiorly down to the pubic symphysis with a 15 blade scalpel. Bovie cauterization was used to dissect through the subcutaneous tissue and rectus fascia; the fascia was opened along the course of the skin incision. A Bookwalter was brought onto the operative field and used to retract the fascia laterally. The sigmoid colon was examined and noted be densely adherent to the left lateral sidewall. The ovary was also noted to be densely adherent. Bovie dissection and sharp dissection were used to partially dissect the sidewall from the sigmoid colon. The sigmoid: Was enlarged, thickened, with a thickened mesentery. The decision was made to transect across the sigmoid colon with a SALLIE stapler and then transect across the mesentery down towards the sacral prominence with a handheld LigaSure. Once this was performed, blunt dissection was performed in the presacral space along with Bovie cauterization. This allowed for further retraction of the sigmoid and rectum region medially to allow for better dissection. The left ureter was identified and spared and further dissection was then able to be performed to completely dissect the left lateral sidewall away from the sigmoid colon. The peritoneum was then scored on the right side towards the uterus. Dissection was carried down circumferentially around the rectum below the level of the thickening and presumed inflammation. A contour stapler was then placed along the proximal rectum and the segment of the sigmoid and rectosigmoid colon was transected and submitted to pathology. The pelvis was irrigated with normal saline solution and the decision was made to perform a stapled anastomosis. The staple line along the distal descending colon was transected with a Bovie cauterization and a 2-0 Prolene suture was used to create a pursestring. Sizers were then placed within the lumen and a 29 EEA stapler was brought onto the operative field. The anvil was then placed within the lumen of the descending colon and the pursestring was tied without difficulty. The EEA stapler was placed from below through the anus and the male and extruded at or above the level of the staple line. The anvil was then connected and the hub was retracted followed by completion of the staple line. Examination of the anastomotic rings showed 2 intact anastomotic rings. The pelvis was filled with normal saline solution above the level of the staple line. The sigmoid colon was then clamped by hand and air was placed through the rectum which showed no evidence of a leak. The fluid was then suctioned and the abdomen was irrigated with normal saline solution containing Mefoxin. A 19-Dutch [place] drain was then placed within the pelvis and secured with a 2 and nylon suture. Seprafilm was placed within the abdomen and the midline incision was then closed using 2 looped PDS sutures. The subcutaneous tissue was reapproximated with 2-0 Vicryl sutures. The 12 mm left lower quadrant port subcutaneous tissue was also closed with a 2-0 Vicryl suture. The epidermal and dermal layers for the remaining incisions were closed with sury. Needle , sponge, and instrument counts were correct 2 and the incisions were covered with Band-Aids, and 4 x 4's. The patient was aroused from IV sedation, extubated in the operating room without complication, and transported to the recovery room stable condition.
[2018-02-08] MEDS ORDERED: ROPIVACAINE HCL/PF 0.5% 30 ML VIAL ONE (19:28)
--- NOTE | 2018-02-08 19:58 | Anesthesia Procedures ---
Date of Encounter: 02/08/18 Time of Encounter: 19:43 Procedures: Anesthesia - Nerve Block Procedure Date: 02/08/18 Time: 19:43 Allergies/Adv Reactions: NKDA Surgical Procedure: Colectomy Checklist: Correct Patient Identifier, Correct procedure, History checked Correct side: Left (Bilateral Subcostal TAP Blocks) Blood Thinner: No Monitor Applied: EKG, BP, Pulse Oximetry Supplemental Oxygen via Nasal Cannula (L/min): 2 Indication: Post Op Analgesia Pre-op Neuro Deficits: No Block Type: Other (Bilateral Subcostal TAP blocks) Catheter placed: No Sterile Technique: Yes Ultrasound used: Yes Anatomy identified: Yes Visual spread of Local: Yes Neuro Stimulation: No Blood on Needle Aspiration: No Smooth Injection of Local: Yes Pain with Injection of Local: No Prep: Chlorhexadine Needle: 21 x 100 mm Stimuplex Local: Ropivacaine (30ml 0.25% Ropivacaine and 4mg Decadron administered on both the R and L TAP Blocks) Volume (cc): 60 Number of Attempts: 1 Complications: None/effective block Vitals: Vital Signs/O2 Sat/Glucose, Most Recent Temp Pulse Resp BP Pulse Ox 98.2 F 81 18 123/66 95 02/08/18 19:48 02/08/18 19:48 02/08/18 19:48 02/08/18 19:48 02/08/18 19:48 Blood Glucose* 116
--- NOTE | 2018-02-08 20:02 | Anesthesia Evaluation Post Op ---
Date of Encounter: 02/08/18 Time of Encounter: 20:00 - Vital Signs Vital Signs: Vital Signs/O2 Sat/Glucose, Most Recent Temp Pulse Resp BP Pulse Ox 98.2 F 81 18 123/66 95 02/08/18 19:48 02/08/18 19:48 02/08/18 19:48 02/08/18 19:48 02/08/18 19:48 Blood Glucose* 116 - Lungs Lungs: Clear Ascult./Percussion - Airway Airway: Non-obstructed - Cardiovascular Regular Rate - Mental Status Mental Status: Alert & Oriented, Answers Appropriately - Pain Pain Scale: 0 Pain Scale used: Numeric (1 - 10) - Nausea Vomiting Nausea Vomiting: Not Present - Hydration Hydration: NPO, Moon catheter - Discharge PostOp Status: Transfer Patient to floor (Pt has fully recovered from GA and is stable to transfer back to floor. VSS. Neuro exam intact at pre-op baseline.)
[2018-02-08] MEDS: *HR* FentaNYL (PF) 100 MCG/2 ML VIAL IVP PRN ×2 (20:05→20:10)
[2018-02-08] MEDS ORDERED: Naloxone 0.4 MG/ML INJ IVP PRN (20:46)
[2018-02-08] MEDS ORDERED: MORPHINE SUL Oral CONC 10 MG/0.5 ML ORAL.SYG SL PRN (20:46)
[2018-02-08] MEDS ORDERED: Ondansetron 4 MG/2 ML VIAL IVP PRN (20:46)
[2018-02-08] MEDS ORDERED: D10% in Water 500 ML IVC PRN (20:46)
[2018-02-08] MEDS ORDERED: OXYCODONE Oral CONC 10 MG/0.5 ML ORAL.SYG SL PRN (20:46)
[2018-02-08] MEDS: 0.9 % Sodium Chloride 1,000 ML IVC SCH (21:16)
[2018-02-08] MEDS: Ketorolac 30 MG/ML VIAL IM SCH (23:59)
[2018-02-09 04:55] LABS: BUN/Creatinine Ratio 19 (6-26); Blood Urea Nitrogen 13 mg/dL (8-23); Calcium 8.9 mg/dL (8.6-10.3); Carbon Dioxide 25 mEq/L (23-29); Chloride 109 mEq/L (98-107); Glucose 267 mg/dL (70-105); Magnesium 1.6 mg/dL (1.6-2.6); Osmolality,Calculated 283 (280-300); Potassium 3.4 mEq/L (3.5-5.1); Sodium 132 mEq/L (136-145); eGFR For Non-African Americans > 60 (> 60)
[2018-02-09] MEDS: Ketorolac 30 MG/ML VIAL IM SCH ×2 (05:14→11:50)
[2018-02-09] MEDS: *HR* Heparin 5,000 UNIT/ML VIAL SQ SCH ×3 (05:15→19:51)
[2018-02-09] MEDS ORDERED: *HR* Dextrose 50 % in Water (Syg) 50 ML SYRINGE IVP PRN (08:41)
[2018-02-09] MEDS ORDERED: Dextrose Gel 15 GM/37.5 ML TUBE PO PRN ×2 (08:41)
[2018-02-09] MEDS ORDERED: D5% in Water 1,000 ML IVC PRN (08:41)
[2018-02-09] MEDS: 0.9 % Sodium Chloride 1,000 ML IVC SCH ×4 (08:42→19:49)
[2018-02-09] MEDS: MetroNIDAZOLE 500 MG/100 ML 500 MG/100 ML BAG IVPB SCH ×2 (08:55→15:42)
[2018-02-09 09:52] LABS: Basophils % 0.1 %; Hematocrit 30.4 % (35.3-44.9); Immature Granulocytes % 0.6 % (0-4); Lymphocytes # 0.7 K/mcL (0.6-4.6); Lymphocytes % 4.8 %; Mean Corpuscular HGB Conc 32.9 g/dL (31.6-35.5); Mean Corpuscular Hemoglobin 29.2 pg (28.0-33.3); Mean Corpuscular Volume 88.6 fL (83.0-100.0); Monocytes # 1.4 K/mcL (0.0-1.3); Monocytes % 9.1 %; Neutrophils # 13.2 K/mcL (1.6-8.9); Platelet Count 199 K/mcL (140-400); Red Blood Count 3.43 M/mcL (3.82-4.97); Red Cell Distribution Width 13.8 % (11.5-14.5); Segmented Neutrophils % 85.4 %
[2018-02-09] MEDS ORDERED: Potassium Phosphate 44 MEQ in 0.9 % Sodium Chloride 250 ML IVPB ONE (10:55)
--- NOTE | 2018-02-09 11:02 | General Surgery Progress Note ---
Addendum entered and electronically signed by Gabriella Aldrich CNP 02/09/18 11: 04: Inadvertently sign note without placing assessment. She reports abdominal soreness that is moderately controlled. She has not been asking for breakthrough pain medication. She denies chest pain, shortness of breath, fever, chills, vomiting, flatus, or bowel movement. She endorses feeling nauseated when she got out of bed but this is resolved. She would like her Lynn removed. VITAL SIGNS: Reviewed. See [facility] GENERAL: In no apparent distress. HEENT: Normocephalic, atraumatic, pupils are equal and reactive, extraocular motions intact, oropharynx is pink and moist, there is no neck adenopathy or JVD noted. CHEST/RESPIRATORY: The thorax is free from signs of trauma. Lung sounds: clear to auscultation, normal respiratory effort CARDIAC: Regular rate and rhythm. Normal S1 and S2, without murmurs, gallops, or rubs. VASCULAR: No Edema. 2+ peripheral pulses. ABDOMEN: soft, expected postoperative tenderness, faint and bowel sounds INCISION: Surgical incision is clean, dry, and intact. There are no signs of cellulitis or infection noted. WOUNDS/DRAINS: ALTHEA drain with 40 ML's of SS output MUSCULOSKELETAL: Good range of motion of all major joints. Extremities without clubbing, cyanosis or edema. NEUROLOGIC EXAM: Alert and oriented x 3. Speech normal. Follows commands. PSYCHIATRIC: Mood normal. SKIN: No rash or lesions. Original Note: <Gabriella Aldrich - Last Filed: 02/09/18 10:55> Date of Encounter: 02/09/18 Time of Encounter: 10:55 - Assessment and Plan (1) Abnormal CT of the abdomen Current Visit: Yes Status: Acute Date of procedure: 02/08/18 Pre-op diagnosis: Sigmoid inflammation/abnormal CT abdomen Post-op diagnosis: same Procedure: Laparoscopic assisted sigmoid colectomy Anesthesia: GETA Surgeon: Farhan Campbell POD #1 as above. Pt is sitting upright in chair at bedside. States soreness, but no pain. She denies flatus or bm. Her vss and she is afebrile. Small amount of dried blood on her dressing. SS fluid (more sanguineous) in her ALTHEA. She would like her lynn out. Plan: Advance diet to Clears, no sugar, carbonation, or red dye IVF (titrate MIV/TPN to TPN goal. May stop MIV when TPN at goal) Continue supportive care and discomfort management PICC TPN GI and DVT prophylaxis repeat am labs replete lytes as indicated replaced phos today serial abdominal exams Cotninue IV Atbx (cipro flagyl) d/c lynn cath ambulate as tolerated (2) DVT prophylaxis Current Visit: Yes Status: Acute heparin 5000 units SQ amb tid EPCDs (3) Essential hypertension Current Visit: Yes Status: Chronic continue home meds (4) Electrolyte imbalance Current Visit: Yes Status: Acute See above. Replace as indicated Objective Vital Signs - Last 8 Hours Temp Pulse Resp BP Pulse Ox 02/09/18 07:47 97.6 F 76 17 123/69 95 02/09/18 04:22 97.4 F L 83 16 113/67 94 Intake and Output 02/08/18 02/09/18 02/09/18 23:59 07:59 15:59 Intake Total 100 / 100 Output Total 335 / 335 775 / 775 Balance -335 / -335 100 / 100 -775 / -775 Intake: IV Fluids 100 / 100 Flagyl Premix 500 MG/100 ML 500 100 / 100 mg In 100 ml @ 100 mls/hr IVPB Q8HR [facility] Rx#:[id number] Output: Urine 120 / 120 700 / 700 Estimated Blood Loss 40 / 40 Urine Amount (Catheter) 75 / 75 Wound Drainage 100 / 100 75 / 75 Right Upper Abdomen 60 / 60 75 / 75 Other: Weight 74.9 kg Blood Glucose* 275 Patient Weight 02/09/18 23:59 Weight 74.9 kg - Labs 02/09/18 09:00 02/09/18 04:14 Diabetes panel 02/09/18 Range/Units 04:14 Sodium 132 L (136-145) mEq/L Potassium 3.4 L (3.5-5.1) mEq/L Chloride 109 H (98-107) mEq/L Carbon Dioxide 25 (23-29) mEq/L BUN 13 (8-23) mg/dL Creatinine 0.68 (0.60-1.20) mg/dL Glucose 267 H (70-105) mg/dL Calcium 8.9 (8.6-10.3) mg/dL Calcium panel 02/09/18 Range/Units 04:14 Calcium 8.9 (8.6-10.3) mg/dL Phosphorus 2.0 L (2.7-4.5) mg/dL Pituitary panel 02/09/18 Range/Units 04:14 Sodium 132 L (136-145) mEq/L Potassium 3.4 L (3.5-5.1) mEq/L Chloride 109 H (98-107) mEq/L Carbon Dioxide 25 (23-29) mEq/L BUN 13 (8-23) mg/dL Creatinine 0.68 (0.60-1.20) mg/dL Glucose 267 H (70-105) mg/dL Calcium 8.9 (8.6-10.3) mg/dL Adrenal panel 02/09/18 Range/Units 04:14 Sodium 132 L (136-145) mEq/L Potassium 3.4 L (3.5-5.1) mEq/L Chloride 109 H (98-107) mEq/L Carbon Dioxide 25 (23-29) mEq/L BUN 13 (8-23) mg/dL Creatinine 0.68 (0.60-1.20) mg/dL Glucose 267 H (70-105) mg/dL Calcium 8.9 (8.6-10.3) mg/dL - VTE Documentation of Mechanical Device: Intermittent pneumatic compression device Consult Discharge Plan - Plan Referrals: Sapna Ramos CNP [Primary Care Provider] - <Farhan Campbell - Last Filed: 02/10/18 07:02> Date of Encounter: 02/09/18 Objective Vital Signs - Last 8 Hours Temp Pulse Resp BP Pulse Ox 02/10/18 04:41 97.9 F 79 16 124/68 94 Intake and Output 02/09/18 02/09/18 02/10/18 15:59 23:59 07:59 Intake Total 200 / 200 400 / 400 570 / 570 Output Total 775 / 775 800 / 800 400 / 400 Balance -575 / -575 -400 / -400 170 / 170 Intake: IV Fluids 200 / 200 400 / 400 450 / 450 Ofirmev 1,000 mg/100 ml 1,000 100 / 100 100 / 100 100 / 100 mg In 100 ml @ 400 mls/hr IVPB Q6HR [facility] Rx#:[id number] Cipro Premix 400 MG/200 ML 400 200 / 200 mg In 200 ml @ 200 mls/hr IVPB Q12HR [facility] Rx#:[id number] Intralipid 20% 250 ML @ 21 mls/ 250 / 250 hr IVPB DAILY@1700 [facility] Rx#: [id number] Flagyl Premix 500 MG/100 ML 500 100 / 100 100 / 100 100 / 100 mg In 100 ml @ 100 mls/hr IVPB Q8HR [facility] Rx#:[id number] Oral 0 / 0 120 / 120 Output: Urine 700 / 700 750 / 750 400 / 400 Wound Drainage 75 / 75 50 / 50 0 / 0 Right Upper Abdomen 75 / 75 50 / 50 0 / 0 Other: Meal Lunch Percent of Meal Consumed 0% Weight 75.6 kg Blood Glucose* 138 131 125 Patient Weight 02/10/18 23:59 Weight 75.6 kg - Labs 02/10/18 04:10 02/10/18 04:10 Diabetes panel 02/10/18 Range/Units 04:10 Sodium 139 (136-145) mEq/L Potassium 3.4 L (3.5-5.1) mEq/L Chloride 109 H (98-107) mEq/L Carbon Dioxide 26 (23-29) mEq/L BUN 14 (8-23) mg/dL Creatinine 0.53 L (0.60-1.20) mg/dL Glucose 108 H (70-105) mg/dL Calcium 8.8 (8.6-10.3) mg/dL Calcium panel 02/10/18 Range/Units 04:10 Calcium 8.8 (8.6-10.3) mg/dL Phosphorus 2.7 (2.7-4.5) mg/dL Pituitary panel 02/10/18 Range/Units 04:10 Sodium 139 (136-145) mEq/L Potassium 3.4 L (3.5-5.1) mEq/L Chloride 109 H (98-107) mEq/L Carbon Dioxide 26 (23-29) mEq/L BUN 14 (8-23) mg/dL Creatinine 0.53 L (0.60-1.20) mg/dL Glucose 108 H (70-105) mg/dL Calcium 8.8 (8.6-10.3) mg/dL Adrenal panel 02/10/18 Range/Units 04:10 Sodium 139 (136-145) mEq/L Potassium 3.4 L (3.5-5.1) mEq/L Chloride 109 H (98-107) mEq/L Carbon Dioxide 26 (23-29) mEq/L BUN 14 (8-23) mg/dL Creatinine 0.53 L (0.60-1.20) mg/dL Glucose 108 H (70-105) mg/dL Calcium 8.8 (8.6-10.3) mg/dL - Attending Attestation I have personally performed a face to face evaluation on this patient. I have reviewed and agree with the care plan. History and Exam by me shows: First reviewed the above assessment and evaluation and examined the patient and agree with the above-mentioned plan.
[2018-02-09 11:34] LABS: Saccharomyces cerevisiae IgA 17.2 Units (0.0-24.9)
[2018-02-09] MEDS: Acetaminophen IV 1,000 MG/100 ML INFUS..BTL IVPB SCH ×2 (11:49→17:41)
[2018-02-09] MEDS: Insulin LISPRO 300 UNITS/3 ML VIAL SQ SCH ×2 (11:51→18:35)
[2018-02-09] MEDS ORDERED: Clinimix E 5%-15% SOLUTION 2,000 ML with MVI, adult with vitamin K 10 ML IVC SCH (17:00)
[2018-02-10] MEDS: Insulin LISPRO 300 UNITS/3 ML VIAL SQ SCH ×4 (01:21→17:19)
[2018-02-10] MEDS: Acetaminophen IV 1,000 MG/100 ML INFUS..BTL IVPB SCH ×4 (01:23→17:20)
[2018-02-10] MEDS: MetroNIDAZOLE 500 MG/100 ML 500 MG/100 ML BAG IVPB SCH ×3 (01:23→15:59)
[2018-02-10] MEDS: 0.9 % Sodium Chloride 1,000 ML IVC SCH (03:39)
[2018-02-10 04:37] LABS: Basophils # 0.1 K/mcL (0.0-0.2); Basophils % 0.3 %; Eosinophils # 0.1 K/mcL (0.0-0.6); Eosinophils % 0.6 %; Hematocrit 28.7 % (35.3-44.9); Hemoglobin 9.2 g/dL (11.5-15.4); Immature Granulocytes % 0.5 % (0-4); Lymphocytes # 1.8 K/mcL (0.6-4.6); Lymphocytes % 12.4 %; Mean Corpuscular HGB Conc 32.1 g/dL (31.6-35.5); Mean Corpuscular Hemoglobin 28.4 pg (28.0-33.3); Mean Corpuscular Volume 88.6 fL (83.0-100.0); Mean Platelet Volume 10.7 fL (9.4-12.4); Monocytes # 1.5 K/mcL (0.0-1.3); Monocytes % 10.3 %; Platelet Count 190 K/mcL (140-400); Red Blood Count 3.24 M/mcL (3.82-4.97); Red Cell Distribution Width 14.3 % (11.5-14.5); Segmented Neutrophils % 75.9 %
[2018-02-10 04:45] LABS: BUN/Creatinine Ratio 26 (6-26); Blood Urea Nitrogen 14 mg/dL (8-23); Calcium 8.8 mg/dL (8.6-10.3); Carbon Dioxide 26 mEq/L (23-29); Chloride 109 mEq/L (98-107); Glucose 108 mg/dL (70-105); Magnesium 1.6 mg/dL (1.6-2.6); Osmolality,Calculated 289 (280-300); Phosphorous 2.7 mg/dL (2.7-4.5); Potassium 3.4 mEq/L (3.5-5.1); Sodium 139 mEq/L (136-145); eGFR For Non-African Americans > 60 (> 60)
[2018-02-10] MEDS: *HR* Heparin 5,000 UNIT/ML VIAL SQ SCH ×2 (05:50→17:18)
--- NOTE | 2018-02-10 08:29 | General Surgery Progress Note ---
<Gigi Tena - Last Filed: 02/10/18 08:24> Date of Encounter: 02/10/18 Time of Encounter: 07:00 (Documented post-encounter) Subjective Patient reports: no new complaints, feels better, pain is less, no flatus, no bowel movement, afebrile Narrative: Patient states she feels better today than yesterday. Patient describes pain at incision site and manageable with acetaminophen alone. Patient denies any flatus or bowel movements, but states she is voiding urine without any difficulty. She states she can feel her bowels "moving". Objective Vital Signs - Last 8 Hours Temp Pulse Resp BP Pulse Ox 02/10/18 07:33 98.5 F 75 16 134/73 95 02/10/18 04:41 97.9 F 79 16 124/68 94 Intake and Output 02/09/18 02/10/18 02/10/18 23:59 07:59 15:59 Intake Total 400 / 400 870 / 870 Output Total 800 / 800 650 / 650 Balance -400 / -400 220 / 220 Intake: IV Fluids 400 / 400 750 / 750 Ofirmev 1,000 mg/100 ml 1,000 100 / 100 200 / 200 mg In 100 ml @ 400 mls/hr IVPB Q6HR [facility] Rx#:[id number] Cipro Premix 400 MG/200 ML 400 200 / 200 200 / 200 mg In 200 ml @ 200 mls/hr IVPB Q12HR [facility] Rx#:[id number] Intralipid 20% 250 ML @ 21 mls/ 250 / 250 hr IVPB DAILY@1700 [facility] Rx#: [id number] Flagyl Premix 500 MG/100 ML 500 100 / 100 100 / 100 mg In 100 ml @ 100 mls/hr IVPB Q8HR [facility] Rx#:[id number] Oral 120 / 120 Output: Urine 750 / 750 650 / 650 Wound Drainage 50 / 50 0 / 0 Right Upper Abdomen 50 / 50 0 / 0 Other: Weight 75.6 kg Blood Glucose* 131 108 Patient Weight 02/10/18 23:59 Weight 75.6 kg - General physical appearance no distress - Eyes PERRL, normal ocular movement - Respiratory normal expansion, clear to auscultation - Abdomen Abdomen: Present: bowel sounds present, soft, surgical scars Additional Comments: Bowel sounds present in all 4 quadrants - Incision Incision: Present: clean and dry - Labs 02/10/18 04:10 02/10/18 04:10 Diabetes panel 02/10/18 Range/Units 04:10 Sodium 139 (136-145) mEq/L Potassium 3.4 L (3.5-5.1) mEq/L Chloride 109 H (98-107) mEq/L Carbon Dioxide 26 (23-29) mEq/L BUN 14 (8-23) mg/dL Creatinine 0.53 L (0.60-1.20) mg/dL Glucose 108 H (70-105) mg/dL Calcium 8.8 (8.6-10.3) mg/dL Calcium panel 02/10/18 Range/Units 04:10 Calcium 8.8 (8.6-10.3) mg/dL Phosphorus 2.7 (2.7-4.5) mg/dL Pituitary panel 02/10/18 Range/Units 04:10 Sodium 139 (136-145) mEq/L Potassium 3.4 L (3.5-5.1) mEq/L Chloride 109 H (98-107) mEq/L Carbon Dioxide 26 (23-29) mEq/L BUN 14 (8-23) mg/dL Creatinine 0.53 L (0.60-1.20) mg/dL Glucose 108 H (70-105) mg/dL Calcium 8.8 (8.6-10.3) mg/dL Adrenal panel 02/10/18 Range/Units 04:10 Sodium 139 (136-145) mEq/L Potassium 3.4 L (3.5-5.1) mEq/L Chloride 109 H (98-107) mEq/L Carbon Dioxide 26 (23-29) mEq/L BUN 14 (8-23) mg/dL Creatinine 0.53 L (0.60-1.20) mg/dL Glucose 108 H (70-105) mg/dL Calcium 8.8 (8.6-10.3) mg/dL - VTE Documentation of Mechanical Device: Intermittent pneumatic compression device Consult Discharge Plan - Plan Referrals: Sapna Ramos, ETL ARCHITECT [Primary Care Provider] - <Farhan Campbell - Last Filed: 02/11/18 15:26> Date of Encounter: 02/10/18 Objective Vital Signs - Last 8 Hours Temp Pulse Resp BP Pulse Ox 02/11/18 14:17 98.1 F 90 14 151/76 96 02/11/18 10:53 98.4 F 83 14 161/79 95 Intake and Output 02/10/18 02/11/18 02/11/18 23:59 07:59 15:59 Intake Total 2410 / 2410 750 / 750 460 / 460 Output Total 0 / 0 530 / 530 400 / 400 Balance 2410 / 2410 220 / 220 60 / 60 Intake: IV Fluids 2410 / 2410 750 / 750 100 / 100 Clinimix E 5%-15% SOLUTION , 2009 000 ML @ 50 mls/hr IVC .Q24H [facility] with M.v.i. Adult 10 ml Rx# :[id number] Ofirmev 1,000 mg/100 ml 1,000 100 / 100 200 / 200 mg In 100 ml @ 400 mls/hr IVPB Q6HR [facility] Rx#:[id number] Cipro Premix 400 MG/200 ML 400 200 / 200 200 / 200 mg In 200 ml @ 200 mls/hr IVPB Q12HR [facility] Rx#:[id number] Intralipid 20% 250 ML @ 21 mls/ 250 / 250 hr IVPB DAILY@1700 [facility] Rx#: [id number] Flagyl Premix 500 MG/100 ML 500 100 / 100 100 / 100 100 / 100 mg In 100 ml @ 100 mls/hr IVPB Q8HR [facility] Rx#:[id number] Oral 0 / 0 0 / 0 360 / 360 Output: Urine 0 / 0 500 / 500 400 / 400 Wound Drainage 30 / 30 Right Upper Abdomen 30 / 30 Other: Meal Dinner Lunch Percent of Meal Consumed 15% 15% Stool Size Moderate Stool Consistency liquid Stool Color Brown # Voids 2 1 Weight 75.3 kg Blood Glucose* 111 170 104 Patient Weight 02/11/18 23:59 Weight 75.3 kg - Labs 02/11/18 04:16 02/11/18 04:16 Diabetes panel 02/11/18 Range/Units 04:16 Sodium 136 (136-145) mEq/L Potassium 3.5 (3.5-5.1) mEq/L Chloride 106 (98-107) mEq/L Carbon Dioxide 28 (23-29) mEq/L BUN 12 (8-23) mg/dL Creatinine 0.51 L (0.60-1.20) mg/dL Glucose 99 (70-105) mg/dL Calcium 8.8 (8.6-10.3) mg/dL Calcium panel 02/11/18 02/11/18 Range/Units 04:16 04:16 Calcium 8.8 (8.6-10.3) mg/dL Phosphorus 2.8 (2.7-4.5) mg/dL Pituitary panel 02/11/18 Range/Units 04:16 Sodium 136 (136-145) mEq/L Potassium 3.5 (3.5-5.1) mEq/L Chloride 106 (98-107) mEq/L Carbon Dioxide 28 (23-29) mEq/L BUN 12 (8-23) mg/dL Creatinine 0.51 L (0.60-1.20) mg/dL Glucose 99 (70-105) mg/dL Calcium 8.8 (8.6-10.3) mg/dL Adrenal panel 02/11/18 Range/Units 04:16 Sodium 136 (136-145) mEq/L Potassium 3.5 (3.5-5.1) mEq/L Chloride 106 (98-107) mEq/L Carbon Dioxide 28 (23-29) mEq/L BUN 12 (8-23) mg/dL Creatinine 0.51 L (0.60-1.20) mg/dL Glucose 99 (70-105) mg/dL Calcium 8.8 (8.6-10.3) mg/dL - Attending Attestation The history, physical exam, and medical decision making was performed by the medical student either while I was physically present and actively involved or I personally re-performed the exam and medical decision making. I have verified the accuracy of the medical student's documentation with regards to the history, physical exam findings, and medical decision making. Review the above assessment and evaluation and agree with the above plan. Patient has some mild abdominal pain but overall does feel better. Mild flatus. No nausea or vomiting. Will advance diet to the full liquids. Noted mild hypokalemia which we will replace with potassium. We will continue to follow CBC and BMP.
[2018-02-10] MEDS ORDERED: Potassium Chloride 40 MEQ, Lidocaine 1% 2 ML in D5% in Water 500 ML IVPB ONE (11:15)
[2018-02-10] MEDS ORDERED: Clinimix E 5%-15% SOLUTION 2,000 ML, Parenteral Amino Acid 10% 0 ML with MVI, adult wi... IVC SCH (17:00)
[2018-02-10] MEDS ORDERED: Clinimix E 5%-15% SOLUTION 2,000 ML with MVI, adult with vitamin K 10 ML IVC SCH (17:00)
[2018-02-11] MEDS: MetroNIDAZOLE 500 MG/100 ML 500 MG/100 ML BAG IVPB SCH ×3 (00:12→16:25)
[2018-02-11] MEDS: Acetaminophen IV 1,000 MG/100 ML INFUS..BTL IVPB SCH ×4 (00:12→17:22)
[2018-02-11] MEDS: Insulin LISPRO 300 UNITS/3 ML VIAL SQ SCH ×4 (00:23→17:19)
[2018-02-11 04:33] LABS: Basophils # 0.1 K/mcL (0.0-0.2); Basophils % 0.4 %; Eosinophils # 0.3 K/mcL (0.0-0.6); Eosinophils % 1.8 %; Hemoglobin 9.7 g/dL (11.5-15.4); Immature Granulocytes % 0.6 % (0-4); Lymphocytes # 1.9 K/mcL (0.6-4.6); Lymphocytes % 13.3 %; Mean Corpuscular HGB Conc 32.3 g/dL (31.6-35.5); Mean Corpuscular Hemoglobin 28.9 pg (28.0-33.3); Mean Corpuscular Volume 89.3 fL (83.0-100.0); Mean Platelet Volume 10.5 fL (9.4-12.4); Monocytes # 1.9 K/mcL (0.0-1.3); Monocytes % 13.3 %; Neutrophils # 10.1 K/mcL (1.6-8.9); Platelet Count 210 K/mcL (140-400); Red Blood Count 3.36 M/mcL (3.82-4.97); Red Cell Distribution Width 14.5 % (11.5-14.5); Segmented Neutrophils % 70.6 %
[2018-02-11 04:49] LABS: BUN/Creatinine Ratio 24 (6-26); Blood Urea Nitrogen 12 mg/dL (8-23); Calcium 8.8 mg/dL (8.6-10.3); Carbon Dioxide 28 mEq/L (23-29); Chloride 106 mEq/L (98-107); Glucose 99 mg/dL (70-105); Magnesium 1.6 mg/dL (1.6-2.6); Osmolality,Calculated 282 (280-300); Phosphorous 2.8 mg/dL (2.7-4.5); Potassium 3.5 mEq/L (3.5-5.1); Sodium 136 mEq/L (136-145); eGFR For Non-African Americans > 60 (> 60)
[2018-02-11] MEDS: *HR* Heparin 5,000 UNIT/ML VIAL SQ SCH ×2 (05:59→17:24)
--- NOTE | 2018-02-11 09:47 | General Surgery Progress Note ---
<Gigi Tena - Last Filed: 02/11/18 13:00> Date of Encounter: 02/11/18 Time of Encounter: 09:45 Subjective Patient reports: still having pain, pain is less, voiding w/o difficulty, flatus , bowel movement, afebrile Narrative: Patient states she is having less pain this morning still controlled with acetaminophen. She has been able to tolerate full liquids for the last 24 hours , with mild nausea, which has been less severe this morning. She has been having flatus and loose stools, and has been voiding urine without difficulty. Patient is able to ambulate from bed to chair and around room without assistance. Objective Vital Signs - Last 8 Hours Temp Pulse Resp BP Pulse Ox 02/11/18 06:59 98.3 F 79 16 143/78 95 02/11/18 04:16 98.1 F 79 16 134/78 95 Intake and Output 02/10/18 02/11/18 02/11/18 23:59 07:59 15:59 Intake Total 2410 / 2410 550 / 550 120 / 120 Output Total 0 / 0 530 / 530 Balance 2410 / 2410 20 / 20 120 / 120 Intake: IV Fluids 2410 / 2410 550 / 550 Clinimix E 5%-15% SOLUTION 2009 000 ML @ 50 mls/hr IVC .Q24H [facility] with M.v.i. Adult 10 ml Rx# :[id number] Ofirmev 1,000 mg/100 ml 1,000 100 / 100 200 / 200 mg In 100 ml @ 400 mls/hr IVPB Q6HR [facility] Rx#:[id number] Cipro Premix 400 MG/200 ML 400 200 / 200 mg In 200 ml @ 200 mls/hr IVPB Q12HR [facility] Rx#:[id number] Intralipid 20% 250 ML @ 21 mls/ 250 / 250 hr IVPB DAILY@1700 [facility] Rx#: [id number] Flagyl Premix 500 MG/100 ML 500 100 / 100 100 / 100 mg In 100 ml @ 100 mls/hr IVPB Q8HR [facility] Rx#:[id number] Oral 0 / 0 0 / 0 120 / 120 Output: Urine 0 / 0 500 / 500 Wound Drainage 30 / 30 Right Upper Abdomen 30 / 30 Other: Meal Dinner Breakfast Percent of Meal Consumed 15% 25% # Voids 2 Weight 75.3 kg Blood Glucose* 111 170 Patient Weight 02/11/18 23:59 Weight 75.3 kg - General physical appearance no distress - Respiratory normal expansion, clear to auscultation - Cardiovascular Cardiovascular exam: Present: RRR, no murmurs/rubs/gallops - Abdomen Abdomen: Present: bowel sounds present, soft, distended, surgical scars Additional Comments: Bowel sounds present x4, no tenderness outside of area of surgical scar and drain. Abdominal distension is less appreciable today than yesterday. ALTHEA drain serosanguineous. - Psychiatric speech is normal - Labs 02/11/18 04:16 02/11/18 04:16 Diabetes panel 02/11/18 Range/Units 04:16 Sodium 136 (136-145) mEq/L Potassium 3.5 (3.5-5.1) mEq/L Chloride 106 (98-107) mEq/L Carbon Dioxide 28 (23-29) mEq/L BUN 12 (8-23) mg/dL Creatinine 0.51 L (0.60-1.20) mg/dL Glucose 99 (70-105) mg/dL Calcium 8.8 (8.6-10.3) mg/dL Calcium panel 02/11/18 02/11/18 Range/Units 04:16 04:16 Calcium 8.8 (8.6-10.3) mg/dL Phosphorus 2.8 (2.7-4.5) mg/dL Pituitary panel 02/11/18 Range/Units 04:16 Sodium 136 (136-145) mEq/L Potassium 3.5 (3.5-5.1) mEq/L Chloride 106 (98-107) mEq/L Carbon Dioxide 28 (23-29) mEq/L BUN 12 (8-23) mg/dL Creatinine 0.51 L (0.60-1.20) mg/dL Glucose 99 (70-105) mg/dL Calcium 8.8 (8.6-10.3) mg/dL Adrenal panel 02/11/18 Range/Units 04:16 Sodium 136 (136-145) mEq/L Potassium 3.5 (3.5-5.1) mEq/L Chloride 106 (98-107) mEq/L Carbon Dioxide 28 (23-29) mEq/L BUN 12 (8-23) mg/dL Creatinine 0.51 L (0.60-1.20) mg/dL Glucose 99 (70-105) mg/dL Calcium 8.8 (8.6-10.3) mg/dL - VTE Documentation of Mechanical Device: Intermittent pneumatic compression device Consult Discharge Plan - Plan Referrals: Sapna Ramos DIRECTOR [employer] [Primary Care Provider] - <AdrianFarhan Ignacio - Last Filed: 02/11/18 15:29> Date of Encounter: 02/11/18 Objective Vital Signs - Last 8 Hours Temp Pulse Resp BP Pulse Ox 02/11/18 14:17 98.1 F 90 14 151/76 96 02/11/18 10:53 98.4 F 83 14 161/79 95 Intake and Output 02/10/18 02/11/18 02/11/18 23:59 07:59 15:59 Intake Total 2410 / 2410 750 / 750 460 / 460 Output Total 0 / 0 530 / 530 400 / 400 Balance 2410 / 2410 220 / 220 60 / 60 Intake: IV Fluids 2410 / 2410 750 / 750 100 / 100 Clinimix E 5%-15% SOLUTION , 2009 000 ML @ 50 mls/hr IVC .Q24H [facility] with M.v.i. Adult 10 ml Rx# :[id number] Ofirmev 1,000 mg/100 ml 1,000 100 / 100 200 / 200 mg In 100 ml @ 400 mls/hr IVPB Q6HR [facility] Rx#:[id number] Cipro Premix 400 MG/200 ML 400 200 / 200 200 / 200 mg In 200 ml @ 200 mls/hr IVPB Q12HR [facility] Rx#:[id number] Intralipid 20% 250 ML @ 21 mls/ 250 / 250 hr IVPB DAILY@1700 [facility] Rx#: [id number] Flagyl Premix 500 MG/100 ML 500 100 / 100 100 / 100 100 / 100 mg In 100 ml @ 100 mls/hr IVPB Q8HR [facility] Rx#:[id number] Oral 0 / 0 0 / 0 360 / 360 Output: Urine 0 / 0 500 / 500 400 / 400 Wound Drainage 30 / 30 Right Upper Abdomen 30 / 30 Other: Meal Dinner Lunch Percent of Meal Consumed 15% 15% Stool Size Moderate Stool Consistency liquid Stool Color Brown # Voids 2 1 Weight 75.3 kg Blood Glucose* 111 170 104 Patient Weight 02/11/18 23:59 Weight 75.3 kg - Labs 02/11/18 04:16 02/11/18 04:16 Diabetes panel 02/11/18 Range/Units 04:16 Sodium 136 (136-145) mEq/L Potassium 3.5 (3.5-5.1) mEq/L Chloride 106 (98-107) mEq/L Carbon Dioxide 28 (23-29) mEq/L BUN 12 (8-23) mg/dL Creatinine 0.51 L (0.60-1.20) mg/dL Glucose 99 (70-105) mg/dL Calcium 8.8 (8.6-10.3) mg/dL Calcium panel 02/11/18 02/11/18 Range/Units 04:16 04:16 Calcium 8.8 (8.6-10.3) mg/dL Phosphorus 2.8 (2.7-4.5) mg/dL Pituitary panel 02/11/18 Range/Units 04:16 Sodium 136 (136-145) mEq/L Potassium 3.5 (3.5-5.1) mEq/L Chloride 106 (98-107) mEq/L Carbon Dioxide 28 (23-29) mEq/L BUN 12 (8-23) mg/dL Creatinine 0.51 L (0.60-1.20) mg/dL Glucose 99 (70-105) mg/dL Calcium 8.8 (8.6-10.3) mg/dL Adrenal panel 02/11/18 Range/Units 04:16 Sodium 136 (136-145) mEq/L Potassium 3.5 (3.5-5.1) mEq/L Chloride 106 (98-107) mEq/L Carbon Dioxide 28 (23-29) mEq/L BUN 12 (8-23) mg/dL Creatinine 0.51 L (0.60-1.20) mg/dL Glucose 99 (70-105) mg/dL Calcium 8.8 (8.6-10.3) mg/dL - Attending Attestation The history, physical exam, and medical decision making was performed by the medical student either while I was physically present and actively involved or I personally re-performed the exam and medical decision making. I have verified the accuracy of the medical student's documentation with regards to the history, physical exam findings, and medical decision making. I reviewed the above assessment and evaluation and agree with the above plan. Patient feels much better. Mild soreness. Incision is clean dry and intact with no drainage. Positive bowel sounds. Positive flatus. Will advance diet to soft foods. Will also decrease TPN to 50 mL an hour in anticipation of being able to stop it completely tomorrow. Continue out of bed and ambulation. Patient continues to improve we will consider possible discharge within the next 24 hours.
[2018-02-11] MEDS ORDERED: Clinimix E 5%-15% SOLUTION 2,000 ML with MVI, adult with vitamin K 10 ML IVC SCH ×2 (17:00)
[2018-02-12] MEDS: MetroNIDAZOLE 500 MG/100 ML 500 MG/100 ML BAG IVPB SCH ×3 (00:09→16:21)
[2018-02-12] MEDS: Acetaminophen IV 1,000 MG/100 ML INFUS..BTL IVPB SCH ×3 (00:09→11:51)
[2018-02-12] MEDS: Insulin LISPRO 300 UNITS/3 ML VIAL SQ SCH ×4 (01:24→17:50)
[2018-02-12 05:00] LABS: Basophils # 0.1 K/mcL (0.0-0.2); Basophils % 0.5 %; Eosinophils # 0.4 K/mcL (0.0-0.6); Eosinophils % 3.4 %; Hematocrit 28.6 % (35.3-44.9); Hemoglobin 9.3 g/dL (11.5-15.4); Immature Granulocytes % 0.4 % (0-4); Immature Platelets 4.8 % (1.1-6.1); Lymphocytes # 1.8 K/mcL (0.6-4.6); Lymphocytes % 15.4 %; Mean Corpuscular HGB Conc 32.5 g/dL (31.6-35.5); Mean Corpuscular Hemoglobin 28.5 pg (28.0-33.3); Mean Corpuscular Volume 87.7 fL (83.0-100.0); Monocytes # 1.5 K/mcL (0.0-1.3); Monocytes % 13.2 %; Neutrophils # 7.7 K/mcL (1.6-8.9); Platelet Count 239 K/mcL (140-400); Red Blood Count 3.26 M/mcL (3.82-4.97); Red Cell Distribution Width 14.5 % (11.5-14.5); Segmented Neutrophils % 67.1 %
[2018-02-12 05:18] LABS: Magnesium 1.7 mg/dL (1.6-2.6); Phosphorous 3.4 mg/dL (2.7-4.5)
[2018-02-12 05:19] LABS: BUN/Creatinine Ratio 22 (6-26); Blood Urea Nitrogen 11 mg/dL (8-23); Calcium 8.8 mg/dL (8.6-10.3); Carbon Dioxide 30 mEq/L (23-29); Chloride 105 mEq/L (98-107); Glucose 121 mg/dL (70-105); Osmolality,Calculated 287 (280-300); Potassium 3.1 mEq/L (3.5-5.1); Sodium 138 mEq/L (136-145); eGFR For Non-African Americans > 60 (> 60)
[2018-02-12] MEDS: *HR* Heparin 5,000 UNIT/ML VIAL SQ SCH ×2 (06:02→17:58)
--- NOTE | 2018-02-12 10:22 | General Surgery Progress Note ---
<Radha Colby E - Last Filed: 02/12/18 13:05> Date of Encounter: 02/12/18 Time of Encounter: 10:19 - Assessment and Plan (1) Hypercholesterolemia Current Visit: Yes Status: Acute continue home medications (2) HTN (hypertension) Current Visit: No Status: Chronic continue home medications Hydralazine when necessary as needed for systolic blood pressure over 150 Qualifiers: Hypertension type: essential hypertension Qualified Code(s): I10 - Essential (primary) hypertension (3) DVT prophylaxis Current Visit: Yes Status: Acute Heparin 5000 unit SQ Q12 Ambulate hallways TID (4) Diverticulitis of large intestine with abscess Current Visit: Yes Status: Acute Date of procedure: 02/08/18 Pre-op diagnosis: Sigmoid inflammation/abnormal CT abdomen Post-op diagnosis: same Procedure: Laparoscopic assisted sigmoid colectomy Anesthesia: AKI Surgeon: Farhan Campbell Patient is postop day 4 from lap colectomy for sigmoid inflammation Tolerating soft diet and advance to regular diet Continue IV antibiotics Continue IV fluids Supportive care Pain medication as needed which to oral pain medication Oral GI prophylaxis Qualifiers: Diverticulitis bleeding: without bleeding Qualified Code(s): K57.20 - Diverticulitis of large intestine with perforation and abscess without bleeding (5) Hypokalemia Current Visit: Yes Status: Acute Start K elixir 40 units 2 doses Potassium is 3.1 today fallen from 3.5 yesterday. We will recheck BMP in morning Subjective Patient reports: feels better, flatus, bowel movement, other (Patient says her stomach is still sore, tolerating solids well, had a bowel movement yesterday before noon but has not had one sense, but she is passing gas.) Objective Vital Signs - Last 8 Hours Temp Pulse Resp BP Pulse Ox 02/12/18 10:16 98.9 F 72 16 140/80 94 02/12/18 07:17 97.9 F 79 18 158/82 95 02/12/18 03:49 98 F 86 15 161/75 96 Intake and Output 02/11/18 02/12/18 02/12/18 23:59 07:59 15:59 Intake Total 520 / 520 670 / 670 360 / 360 Output Total 410 / 410 1200 / 1200 850 / 850 Balance 110 / 110 -530 / -530 -490 / -490 Intake: IV Fluids 400 / 400 550 / 550 Ofirmev 1,000 mg/100 ml 1,000 100 / 100 200 / 200 mg In 100 ml @ 400 mls/hr IVPB Q6HR [facility] Rx#:[id number] Cipro Premix 400 MG/200 ML 400 200 / 200 mg In 200 ml @ 200 mls/hr IVPB Q12HR [facility] Rx#:[id number] Intralipid 20% 250 ML @ 21 mls/ 250 / 250 hr IVPB DAILY@1700 [facility] Rx#: [id number] Flagyl Premix 500 MG/100 ML 500 100 / 100 100 / 100 mg In 100 ml @ 100 mls/hr IVPB Q8HR [facility] Rx#:[id number] Oral 120 / 120 120 / 120 360 / 360 Output: Urine 400 / 400 1200 / 1200 850 / 850 Wound Drainage 10 / 10 0 / 0 Right Upper Abdomen 10 / 10 0 / 0 Other: Meal Dinner Breakfast Percent of Meal Consumed 50% 60% Stool Size Smear Stool Consistency loose Stool Characteristics Normal for Patient Stool Color Brown # Bowel Movements 1 0 Weight 79.2 kg Blood Glucose* 112 125 Patient Weight 02/12/18 23:59 Weight 79.2 kg - General physical appearance well developed, well nourished, no distress - Respiratory normal expansion, normal respiratory effort, clear to auscultation - Cardiovascular Cardiovascular exam: Present: RRR, no murmurs/rubs/gallops - Abdomen Abdomen: Present: bowel sounds present, distended, tender Abdominal Tenderness: diffusely (Less so than yesterday) Additional Comments: ALTHEA drain draining serosanguineous fluid. - Musculoskeletal normal posture - Psychiatric oriented to time, oriented to person, oriented to place - Labs 02/12/18 04:20 02/12/18 04:20 Diabetes panel 02/12/18 Range/Units 04:20 Sodium 138 (136-145) mEq/L Potassium 3.1 L (3.5-5.1) mEq/L Chloride 105 (98-107) mEq/L Carbon Dioxide 30 H (23-29) mEq/L BUN 11 (8-23) mg/dL Creatinine 0.51 L (0.60-1.20) mg/dL Glucose 121 H (70-105) mg/dL Calcium 8.8 (8.6-10.3) mg/dL Calcium panel 02/12/18 02/12/18 Range/Units 04:20 04:20 Calcium 8.8 (8.6-10.3) mg/dL Phosphorus 3.4 (2.7-4.5) mg/dL Pituitary panel 02/12/18 Range/Units 04:20 Sodium 138 (136-145) mEq/L Potassium 3.1 L (3.5-5.1) mEq/L Chloride 105 (98-107) mEq/L Carbon Dioxide 30 H (23-29) mEq/L BUN 11 (8-23) mg/dL Creatinine 0.51 L (0.60-1.20) mg/dL Glucose 121 H (70-105) mg/dL Calcium 8.8 (8.6-10.3) mg/dL Adrenal panel 02/12/18 Range/Units 04:20 Sodium 138 (136-145) mEq/L Potassium 3.1 L (3.5-5.1) mEq/L Chloride 105 (98-107) mEq/L Carbon Dioxide 30 H (23-29) mEq/L BUN 11 (8-23) mg/dL Creatinine 0.51 L (0.60-1.20) mg/dL Glucose 121 H (70-105) mg/dL Calcium 8.8 (8.6-10.3) mg/dL - VTE Documentation of Mechanical Device: Intermittent pneumatic compression device Consult Discharge Plan - Plan Referrals: Sapna Ramos, [employer]GE[employer] [Primary Care Provider] - <Farhan Campbell - Last Filed: 02/12/18 15:40> Date of Encounter: 02/12/18 Objective Vital Signs - Last 8 Hours Temp Pulse Resp BP Pulse Ox 02/12/18 14:40 98.7 F 97 16 139/79 94 02/12/18 10:16 98.9 F 72 16 140/80 94 Intake and Output 02/11/18 02/12/18 02/12/18 23:59 07:59 15:59 Intake Total 520 / 520 870 / 870 700 / 700 Output Total 410 / 410 1200 / 1200 875 / 875 Balance 110 / 110 -330 / -330 -175 / -175 Intake: IV Fluids 400 / 400 750 / 750 100 / 100 Ofirmev 1,000 mg/100 ml 1,000 100 / 100 200 / 200 mg In 100 ml @ 400 mls/hr IVPB Q6HR [facility] Rx#:[id number] Cipro Premix 400 MG/200 ML 400 200 / 200 200 / 200 mg In 200 ml @ 200 mls/hr IVPB Q12HR [facility] Rx#:[id number] Intralipid 20% 250 ML @ 21 mls/ 250 / 250 hr IVPB DAILY@1700 [facility] Rx#: [id number] Flagyl Premix 500 MG/100 ML 500 100 / 100 100 / 100 100 / 100 mg In 100 ml @ 100 mls/hr IVPB Q8HR [facility] Rx#:[id number] Oral 120 / 120 120 / 120 600 / 600 Output: Urine 400 / 400 1200 / 1200 850 / 850 Wound Drainage / 10 0 / 0 25 / 25 Right Upper Abdomen 10 / 0 / 0 25 25 Other: Meal Dinner Lunch Percent of Meal Consumed 50% 15% Stool Size Smear Stool Consistency loose Stool Characteristics Normal for Patient Stool Color Brown # Bowel Movements 1 0 Weight 79.2 kg Blood Glucose* 112 125 102 Patient Weight 02/12/18 23:59 Weight 79.2 kg - Labs 02/12/18 04:20 02/12/18 04:20 Diabetes panel 02/12/18 Range/Units 04:20 Sodium 138 (136-145) mEq/L Potassium 3.1 L (3.5-5.1) mEq/L Chloride 105 (98-107) mEq/L Carbon Dioxide 30 H (23-29) mEq/L BUN 11 (8-23) mg/dL Creatinine 0.51 L (0.60-1.20) mg/dL Glucose 121 H (70-105) mg/dL Calcium 8.8 (8.6-10.3) mg/dL Calcium panel 02/12/18 02/12/18 Range/Units 04:20 04:20 Calcium 8.8 (8.6-10.3) mg/dL Phosphorus 3.4 (2.7-4.5) mg/dL Pituitary panel 02/12/18 Range/Units 04:20 Sodium 138 (136-145) mEq/L Potassium 3.1 L (3.5-5.1) mEq/L Chloride 105 (98-107) mEq/L Carbon Dioxide 30 H (23-29) mEq/L BUN 11 (8-23) mg/dL Creatinine 0.51 L (0.60-1.20) mg/dL Glucose 121 H (70-105) mg/dL Calcium 8.8 (8.6-10.3) mg/dL Adrenal panel 02/12/18 Range/Units 04:20 Sodium 138 (136-145) mEq/L Potassium 3.1 L (3.5-5.1) mEq/L Chloride 105 (98-107) mEq/L Carbon Dioxide 30 H (23-29) mEq/L BUN 11 (8-23) mg/dL Creatinine 0.51 L (0.60-1.20) mg/dL Glucose 121 H (70-105) mg/dL Calcium 8.8 (8.6-10.3) mg/dL - Attending Attestation I examined this patient and my medical decision-making was reviewed with the Resident Physician. I agree with the documented findings, disposition and treatment plan as described except to the extent set forth below. I reviewed the above assessment and evaluation and agree with the above plan.
[2018-02-12] MEDS ORDERED: *HR* OxyCODONE/APAP 7.5/325 TABLET PO PRN (12:47)
[2018-02-12] MEDS: Potassium Chloride Elixir 20 MEQ/15 ML UDC PO SCH ×2 (13:23→20:45)
[2018-02-12] MEDS: Ibuprofen 600 MG TABLET PO PRN (15:21)
[2018-02-12] MEDS ORDERED: Clinimix E 5%-15% SOLUTION 2,000 ML with MVI, adult with vitamin K 10 ML IVC SCH (17:00)
[2018-02-13] MEDS: MetroNIDAZOLE 500 MG/100 ML 500 MG/100 ML BAG IVPB SCH ×2 (00:56→09:20)
[2018-02-13] MEDS: Insulin LISPRO 300 UNITS/3 ML VIAL SQ SCH ×2 (01:02→07:00)
[2018-02-13 05:01] LABS: Magnesium 1.6 mg/dL (1.6-2.6); Phosphorous 3.3 mg/dL (2.7-4.5)
[2018-02-13] MEDS: *HR* Heparin 5,000 UNIT/ML VIAL SQ SCH (06:16)
[2018-02-13] MEDS: Ibuprofen 600 MG TABLET PO PRN (06:27)
--- NOTE | 2018-02-13 07:22 | General Surgery Progress Note ---
Date of Encounter: 02/13/18 Time of Encounter: 06:50 Subjective Patient reports: no new complaints, feels better, tolerating a regular diet, voiding w/o difficulty, flatus, bowel movement, afebrile Narrative: Patient has no new complaints. She reports mild pain from the incision site. She is tolerating a regular diet. She is able to ambulate around her room and down hallway. She states her pain is well controlled with oral Motrin and Tylenol. She states she is still having flatus and loose bowel movements. She feels that she is ready to be discharged to home. Objective Vital Signs - Last 8 Hours Temp Pulse Resp BP Pulse Ox 02/13/18 07:11 98.1 F 86 15 148/82 95 02/13/18 04:27 98.2 F 71 16 154/81 93 Intake and Output 02/12/18 02/12/18 02/13/18 15:59 23:59 07:59 Intake Total 700 / 700 1160 / 1160 350 / 350 Output Total 875 / 875 100 / 100 Balance -175 / -175 1060 / 1060 335 / 335 Intake: IV Fluids 100 / 100 300 / 300 100 / 100 Cipro Premix 400 MG/200 ML 400 200 / 200 mg In 200 ml @ 200 mls/hr IVPB Q12HR [facility] Rx#:[id number] Flagyl Premix 500 MG/100 ML 500 100 / 100 100 / 100 100 / 100 mg In 100 ml @ 100 mls/hr IVPB Q8HR [facility] Rx#:[id number] Oral 600 / 600 860 / 860 250 / 250 Output: Urine 850 / 850 100 / 100 Wound Drainage 25 / 25 0 / 0 Right Upper Abdomen 25 / 25 0 / 0 Other: Meal Lunch Dinner Percent of Meal Consumed 15% 80% Stool Size Small Stool Consistency loose Stool Characteristics Normal for Patient Stool Color Brown # Voids 1 # Bowel Movements 1 Blood Glucose* 102 90 - General physical appearance no distress - Respiratory normal expansion, normal respiratory effort, clear to auscultation - Cardiovascular Cardiovascular exam: Present: RRR, no murmurs/rubs/gallops - Abdomen Abdomen: Present: bowel sounds present, soft, surgical scars, wound - Labs 02/12/18 04:20 02/12/18 04:20 Calcium panel 02/13/18 Range/Units 04:23 Phosphorus 3.3 (2.7-4.5) mg/dL - VTE Documentation of Mechanical Device: Intermittent pneumatic compression device Consult Discharge Plan - Plan Referrals: Sapna Ramos CNP [Primary Care Provider] -
--- NOTE | 2018-02-13 08:43 | Discharge Summary ---
Orders not resulted at time of discharge: Pending orders 02/13/18 07:37 BMP [Basic Metabolic Panel] Stat Complete Blood Count [HEME] Stat Date of Encounter: 02/13/18 Time of Encounter: 07:15 - Discharge Diagnosis (1) Abnormal CT of the abdomen Priority: Primary Status: Acute (2) DVT prophylaxis Priority: Secondary Status: Acute (3) Essential hypertension Priority: Secondary Status: Chronic (4) Electrolyte imbalance Priority: Secondary Status: Acute General Surgery Exam Initial Vital Signs Temp Pulse Resp BP Pulse Ox 98.6 F 90 15 129/78 97 02/03/18 20:10 02/03/18 20:10 02/03/18 20:10 02/03/18 20:10 02/03/18 20:10 Vital Signs Temp Pulse Resp BP Pulse Ox 02/13/18 07:11 98.1 F 86 15 148/82 95 02/13/18 04:27 98.2 F 71 16 154/81 93 02/12/18 18:29 98.3 F 105 16 145/79 94 02/12/18 14:40 98.7 F 97 16 139/79 94 02/12/18 10:16 98.9 F 72 16 140/80 94 Intake and Output 02/12/18 02/13/18 02/13/18 23:59 07:59 15:59 Intake Total 1160 / 1160 350 / 350 Output Total 100 / 100 Balance 1060 / 1060 335 / 335 Intake: IV Fluids 300 / 300 100 / 100 Cipro Premix 400 MG/200 ML 400 200 / 200 mg In 200 ml @ 200 mls/hr IVPB Q12HR [facility] Rx#:[id number] Flagyl Premix 500 MG/100 ML 500 100 / 100 100 / 100 mg In 100 ml @ 100 mls/hr IVPB Q8HR [facility] Rx#:[id number] Oral 860 / 860 250 / 250 Output: Urine 100 / 100 Wound Drainage 0 / 0 Right Upper Abdomen 0 / 0 Other: Meal Dinner Percent of Meal Consumed 80% Stool Size Small Stool Consistency loose Stool Characteristics Normal for Patient Stool Color Brown # Voids 1 # Bowel Movements 1 Blood Glucose* 90 VITAL SIGNS: Reviewed. See [facility] GENERAL: In no apparent distress. HEENT: Normocephalic, atraumatic, pupils are equal and reactive, extraocular motions intact, oropharynx is pink and moist, there is no neck adenopathy or JVD noted. CHEST/RESPIRATORY: The thorax is free from signs of trauma. Lung sounds: clear to auscultation, normal respiratory effort CARDIAC: Regular rate and rhythm. Normal S1 and S2, without murmurs, gallops, or rubs. VASCULAR: No Edema. 2+ peripheral pulses. ABDOMEN: [ soft, expected postoperative tenderness, ALTHEA drain was discontinued. INCISION: Surgical incision is clean, dry, and intact. There are no signs of cellulitis or infection noted. MUSCULOSKELETA: Good range of phi of all major joints. Extremities without clubbing, cyanosis or edema. NEUROLOGIC EXA: Alert and oriente x 3. Speech normal. Follows commands. PSYCHIATRIC: Mood normal. SKIN: No rash no lesion. - Hospital Course Hospital course: Ms. Garcia is a 72 year old female who was admitted on 02/04/2018 for abdominal pain and abnormal CT which had been followed as an outpatient by Dr. Campbell. She was taken to the operating room on 02/08/2018 for a laparoscopic assisted sigmoid colectomy. Her ALTHEA drain was DC'd on 02/13/2018. During her hospital stay she was supported with TPN and discomfort management. She is ambulating avoiding without difficulty, tolerating a diet without nausea or vomiting, vital signs are stable, and she is afebrile. We will begin discharge planning to home with a follow-up in the office in approximately 2 weeks. - Time Spent with Patient Total time spent providing and/or coordinating discharge services: - Discharge Medications Prescriptions: Ibuprofen [Motrin] 600 mg PO Q6HR PRN #30 tablet PRN Reason: Mild Pain HYDROcodone/Acet 5/325 mg [[place] 5-325 mg] 1 tab PO Q6H PRN 7 Days #28 tab PRN Reason: Moderate Pain Home Medications: Rosuvastatin Calcium [Crestor] 5 mg PO DAILY 01/24/16 [History] Triamterene/HCTZ 37.5/25mg [Dyazide] 37.5 mg PO DAILY 01/24/16 [History] Biotin Forte 1 each PO DAILY 11/05/16 [History] Ciprofloxacin [Cipro] 500 mg PO BID 02/04/18 [History] Potassium Chloride [Klor-Con 10] 30 meq PO DAILY 02/04/18 [History] Sulfasalazine [Azulfidine] 500 mg PO QID 02/04/18 [History] metroNIDAZOLE [Metronidazole] 500 mg PO BID 02/04/18 [History] HYDROcodone/Acet 5/325 mg [[place] 5-325 mg] 1 tab PO Q6H PRN 7 Days #28 tab 02/13 [Rx] Ibuprofen [Motrin] 600 mg PO Q6HR PRN #30 tablet 02/13/18 [Rx] Allergies/Adverse Reactions: 3 Allergy/AdvReac Type Severity Reaction Status Date / Time No Known Allergies Allergy Verified 01/25/16 10:41 Date of admission: 02/06/18 08:50 Primary care physician: Sapna Ramos CNP Consults: 02/03/18 21:11 Consult to Nutrition [CONS] Routine Comment: Due to depression from loss of son in May Consulting Provider: NUTRITION Reason for Dietary Consult: MST Score 02/03/18 22:54 Consult to Office Bookkeeper [CONS] Routine Reason for SW Consult: Depression causing 33Lb weight loss since May 2017 due to loss of son. 02/05/18 18:10 Consult to Gastroenterology [CONS] Routine Consulting Provider: Gastroenterology Jennifer Reason for Consult: ongoing sigmoid inflammation with intramural abscess, possible IBD versus diverticulitis Time Notified: 18:10 Call Completed: Yes 02/07/18 08:32 consult to community manager [Consult to Nutrition] [CONS] Routine Comment: tpn Consulting Provider: NUTRITION Reason for Dietary Consult: TPN Start and Manage Other:: Total IVF (MIV and TPN) to TPN goal Discharging clinician: Gabriella Aldrich Anticipated date of discharge: 02/13/18 Labs on day of discharge: Labs from last 24 hours 02/13/18 02/12/18 02/12/18 04:23 19:36 16:31 POC Glucose 90 91 Phosphorus 3.3 Magnesium 1.6 02/12/18 02/12/18 02/12/18 11:05 03:47 00:45 POC Glucose 102 H 130 H 124 H Phosphorus Magnesium - Patient Status Disposition: Home, Self-Care Condition: Good Functional capacity at discharge: independent ambulation Overall status at discharge: patient is progressing back to baseline - Discharge Instructions Instructions: Diverticulitis (DC), Colectomy (DC) Follow Up With: Ramos,Sapna L, [employer]PER[employer] [Primary Care Provider] - Farhan Campbell MD [Partnered Physician] - 03/01/18 9:10 am Additional Instructions: General Surgical Discharge Instructions 1. No pushing, pulling, or lifting greater than 15 lbs for 2-4 weeks (depending upon procedure). 2. You may shower beginning today, but no tub baths, soaking, or swimming for 2 weeks. 3. You may resume driving when you are off narcotics and are safe to react in a car. 4. Take ibuprofen every 8 hours for discomfort. If this does not relieve discomfort, you may take the as needed Percocet. Take narcotics as directed. Do not take more narcotics then directed and do not share your narcotics with any other person. Do not drink alcohol while on narcotics. 5. Take stool softeners (Colace) or a water based laxative (Miralax) while taking narcotics. You may hold for loose stools. 6. Report any fevers greater than 100.5F, increase abdominal discomfort, drainage that looks like pus, increased redness or pain at the surgical site, or any vomiting. 7. Report any pain in the calves, shortness of breath, or rapid heartbeat. 8. Follow-up in the office as directed. 9. If you were prescribed antibiotics, do not stop them without talking to your provider. - Diet and Activity Activity: increase activity as tolerated Diet: advance to your usual diet
[2018-02-13 09:41] LABS: BUN/Creatinine Ratio 21 (6-26); Blood Urea Nitrogen 11 mg/dL (8-23); Calcium 8.9 mg/dL (8.6-10.3); Carbon Dioxide 25 mEq/L (23-29); Chloride 107 mEq/L (98-107); Glucose 91 mg/dL (70-105); Osmolality,Calculated 285 (280-300); Potassium 3.8 mEq/L (3.5-5.1); Sodium 138 mEq/L (136-145); eGFR For Non-African Americans > 60 (> 60)
[2018-02-13] MEDS: Potassium Chloride Elixir 20 MEQ/15 ML UDC PO SCH (09:56)
[2018-02-13 10:03] LABS: Basophils # 0.1 K/mcL (0.0-0.2); Basophils % 0.5 %; Eosinophils # 0.6 K/mcL (0.0-0.6); Eosinophils % 5.4 %; Hematocrit 32.2 % (35.3-44.9); Hemoglobin 10.8 g/dL (11.5-15.4); Immature Granulocytes % 0.7 % (0-4); Lymphocytes # 1.7 K/mcL (0.6-4.6); Lymphocytes % 16.7 %; Mean Corpuscular HGB Conc 33.5 g/dL (31.6-35.5); Mean Corpuscular Hemoglobin 29.4 pg (28.0-33.3); Mean Corpuscular Volume 87.7 fL (83.0-100.0); Mean Platelet Volume 10.7 fL (9.4-12.4); Monocytes # 1.2 K/mcL (0.0-1.3); Monocytes % 11.6 %; Neutrophils # 6.7 K/mcL (1.6-8.9); Platelet Count 270 K/mcL (140-400); Red Blood Count 3.67 M/mcL (3.82-4.97); Red Cell Distribution Width 14.3 % (11.5-14.5); Segmented Neutrophils % 65.1 %
[2018-02-13 11:29] VITALS: BP 145/80
== END 2018-02-13 12:45 | disposition home or self-care (01) | DRG 330 ==
LOC: 3ANU
PROVIDERS: ADMIT Surgery; ATTEND Surgery